=== PATIENT | male | born 1965 | race Caucasian/White ===

== ENCOUNTER 2023-09-02 04:59 | Observation (INO) ==
--- NOTE | 2023-08-12 11:33 | PAT Medication Instructions ---
Medication Instructions Date of Service August 12, 2023 Home Medications calcium carbonate 600 mg-vitamin D3 5 mcg (200 unit) capsule (Calcium 600 + D(3)) 1 cap PO QAM cyanocobalamin (vitamin B-12) 1,000 mcg/mL injection kit 1,000 mcg IM Q30D doxepin 3 mg tablet (Silenor) 3 mg PO HS ferrous sulfate 27 mg iron tablet 27 mg PO QAM folic acid 1 mg tablet 1 mg PO QAM gabapentin 600 mg tablet 600 mg PO QAM metformin 1,000 mg tablet 1,000 mg PO BID Centrum Ultra Men's 1 tab PO QAM oxycodone 30 mg tablet (Roxicodone) 30 mg PO Q6H PRN Pain rivaroxaban 10 mg tablet (Xarelto) 10 mg PO QAM timolol maleate (PF) 0.5 % eye drops in a dropperette 1 drp ophthalmic (eye) QAM latanoprost (PF) 0.005 % eye drops 1 drp ophthalmic (eye) HS empagliflozin 10 mg tablet (Jardiance) 10 mg PO QAM omega 7-ziv-akf-fish oil 1,000 mg (120 mg-180 mg) capsule (Fish Oil) 1 cap PO QAM Protonix 1 tab PO QAM metoprolol succinate 1 cap PO QAM tirzepatide 10 mg/0.5 mL subcutaneous pen injector (Mounjaro) 10 mg subcut Q7D ASK your prescriber and surgeon rivaroxaban 10 mg tablet (Xarelto) 10 mg PO QAM (From anesthesia perspective, Rivaroxaban needs to be stopped 72 hours/3 days before surgery. Please check if okay with doctor that prescribes this to you) STOP taking 3 days before surgery empagliflozin 10 mg tablet (Jardiance) 10 mg PO QAM STOP 7 days prior to surgery (if okay with prescriber) tirzepatide 10 mg/0.5 mL subcutaneous pen injector (Mounjaro) 10 mg subcut Q7D STOP taking 2 weeks before surgery (or as soon as possible if surgery is within 2 weeks) omega 8-yvn-bla-fish oil 1,000 mg (120 mg-180 mg) capsule (Fish Oil) 1 cap PO QAM DO NOT take the morning of surgery calcium carbonate 600 mg-vitamin D3 5 mcg (200 unit) capsule (Calcium 600 + D(3)) 1 cap PO QAM cyanocobalamin (vitamin B-12) 1,000 mcg/mL injection kit 1,000 mcg IM Q30D ferrous sulfate 27 mg iron tablet 27 mg PO QAM folic acid 1 mg tablet 1 mg PO QAM metformin 1,000 mg tablet 1,000 mg PO BID Centrum Ultra Men's 1 tab PO QAM Take morning of surgery With a small sip of water, OTHERWISE NOTHING TO EAT OR DRINK AFTER MIDNIGHT: gabapentin 600 mg tablet 600 mg PO QAM oxycodone 30 mg tablet (Roxicodone) 30 mg PO Q6H PRN Pain (if needed) timolol maleate (PF) 0.5 % eye drops in a dropperette 1 drp ophthalmic (eye) QAM Protonix 1 tab PO QAM metoprolol succinate 1 cap PO QAM Take evening before surgery doxepin 3 mg tablet (Silenor) 3 mg PO HS metformin 1,000 mg tablet 1,000 mg PO BID oxycodone 30 mg tablet (Roxicodone) 30 mg PO Q6H PRN Pain (if needed) latanoprost (PF) 0.005 % eye drops 1 drp ophthalmic (eye) HS Other Notes If you have any questions please call us at [phone] or [phone] or [phone] or [phone]
--- NOTE | 2023-08-17 09:30 | Anesthesiology Consultation ---
Date of Service August 17, 2023 Assessment & Plan (1) Encounter for pre-operative examination: - Check BSG AM DOS - Infectious disease screening: Per assessment on 08/17/23: No known infectious disease contacts or current infectious disease symptoms. No noted recent Covid positive test result. - Outpatient joint assessment: Pt currently scheduled for inpatient pathway. If surgeon requests review for outpatient joint pathway, patient is not recommended candidate for outpatient joint program from anesthesia standpoint. - Eliquis instructions: patient made aware that for neuraxial anesthesia, Eliquis needs to be held 72 hours prior to surgery. Patient voiced understanding/will check if okay with prescriber. - Mounjaro instructions: Patient takes on Sundays. Patient informed at PAT visit to stop 7 days prior to surgery- voiced understanding. DOS 09/02/03. Advised last dose to be 08/23/23. Patient advised to check with prescriber regarding holding/restarting Mounjaro. - Patient acceptable risk for surgery pending surgeon-ordered PCP preop evaluation (Dr. Fernandez/Graciela, appt 08/20). Chart Review Chart Review: Patient seen in Pre Admission Testing Teaching & Discussion Pre-Anesthesia Teaching/Discussion Notes: Instructed NPO after midnight before surgery,except medications with 15 cc of water. Medication instructions provided according to the PAT guidelines. History Surgery Operation Date: 09/02/23 07:00 Proposed Procedures p Left Total Knee Arthroplasty - Geovany Hoff MD Height/Weight Height: 5 ft 9 in Weight: 146.7 kg Allergies Allergy/AdvReac Type Severity Reaction Status Date / Time Uxuuqks-EAK-ZeT Reductase Allergy Mild Muscle Pain Verified 08/11/23 13:52 Inhibitor [Sgqgkpg-Uxh-Pdg Reductase Inhibitor] Medications Home Medications Medication Instructions Recorded Confirmed Last Taken calcium carbonate 600 mg-vitamin 1 cap PO QAM 12/14/18 08/11/23 06/25/23 04:30 D3 5 mcg (200 unit) capsule (Calcium 600 + D(3)) cyanocobalamin (vitamin B-12) 1,000 mcg IM Q30D 12/14/18 08/11/23 08/27/20 1,000 mcg/mL injection kit doxepin 3 mg tablet (Silenor) 3 mg PO HS 12/14/18 08/11/23 09/24/20 ferrous sulfate 27 mg iron tablet 27 mg PO QAM 12/14/18 08/11/23 06/25/23 04:30 folic acid 1 mg tablet 1 mg PO QAM 12/14/18 08/11/23 06/25/23 04:30 gabapentin 600 mg tablet 600 mg PO QAM 12/14/18 08/11/23 06/25/23 04:30 metformin 1,000 mg tablet 1,000 mg PO BID 12/14/18 08/11/23 06/25/23 04:30 multivit,Ca,min-iron 8 mg-folic 1 tab PO QAM 12/14/18 08/11/23 06/25/23 04:30 acid 200 mcg-lycopene 600 mcg tablet (Centrum Ultra Men's) oxycodone 30 mg tablet (Roxicodone) 30 mg PO Q6H PRN Pain 12/14/18 08/11/23 06/25/23 04:30 rivaroxaban 10 mg tablet (Xarelto) 10 mg PO QAM 12/14/18 08/11/23 06/25/23 04:30 timolol maleate (PF) 0.5 % eye 1 drp ophthalmic (eye) QA 12/14/18 08/11/23 06/25/23 04:30 drops in a dropperette latanoprost (PF) 0.005 % eye drops 1 drp ophthalmic (eye) 05/27/19 08/11/23 06/25/23 04:30 empagliflozin 10 mg tablet 10 mg PO QAM 12/20/19 08/11/23 06/25/23 04:30 (Jardiance) omega 8-ygb-irq-fish oil 1,000 mg 1 cap PO QAM 12/20/19 08/11/23 06/25/23 04:30 (120 mg-180 mg) capsule (Fish Oil) Protonix 1 tab PO QAM 06/18/23 08/11/23 06/25/23 04:30 metoprolol succinate 1 cap PO QAM 06/18/23 08/11/23 06/25/23 04:30 tirzepatide 10 mg/0.5 mL 10 mg subcut Q7D 06/18/23 08/11/23 06/21/23 subcutaneous pen injector (Chidi) Past Medical History Medical History Chronic back pain Deep vein thrombosis LLE DVT > PE (2000) Factor V leiden mutation Degenerative disc disease Diabetes mellitus, type 2 Factor 5 Leiden mutation, heterozygous Follows with [facility] Hematology/Dr. Ascencion Pablo Glaucoma B/L Hyperlipidemia no meds Insomnia Kidney stones Hx Morbid obesity with BMI of 45.0-49.9, adult Osteoarthritis Pulmonary embolism LLE DVT > PE (2000) Sleep apnea CPAP Spinal stenosis Exercise / Class Metabolic Activity II 4-5 Yardwork/Stairs/Walk up hill (one FS (no CP, no SOB)) Past Family History Family History Father Family history of diabetes mellitus Mother Family history of diabetes mellitus Grandfather (Maternal) Family history of diabetes mellitus Grandfather (Paternal) Family history of diabetes mellitus Family history of esophageal cancer Grandmother (Paternal) Family history of diabetes mellitus Grandmother (Maternal) Family history of diabetes mellitus Other No family history of adverse response to anesthesia Past Surgical History Surgical History History of arthroscopy of left knee meniscus repair History of arthroscopy of right knee meniscus repair History of colonoscopy with polypectomy History of cystoscopy History of left inguinal hernia repair History of lithotripsy History of major abdominal surgery Intussusception repair History of tonsillectomy History of wisdom tooth extraction Hx of vasectomy Past Anesthesia History No Hx of Anesthesia Complications and No Family Hx of Anesthesia Complications History of PONV No Hx of PONV and No Hx of Motion Sickness Social History Smoking Status: Former smoker Do You Dip or Chew Tobacco: No Smoking End Date: Quit years ago Hx Alcohol Use: Yes Alcohol type: hard liquor alcohol intake frequency: 0-2 drinks per day (1 drink/day) Hx Substance Use: No substance use type: does not use Review of Systems Patient denies chest pain, shortness of breath, dyspnea on exertion, fever, chi lls, cough, wheezing, palpitations. Physical Exam Vital Signs VITALS BP 139/97 P 85 TEMP 98.3 SP02 97%RA RESP 18 PHYSICAL Full cervical extension range of motion. Full TMJ range of motion. TMD 3.5 finger breaths Mallampati Score 3 Dentition: missing molars Lungs: clear throughout to auscultation Cardiac: regular rate and rhythm, no murmurs noted Spine: normal Carotid arteries: negative bruit Extremities: no LE edema Large pearson: advised to trim short- patient voiced understanding/agreeable Lab Results Anesthesia Preop Results Results Anesthesia Widget: WBC 5.88 K/ul (4.8-10.8) 08/17/23 Hgb 14.3 g/dl (14.0-18.0) 08/17/23 Hct 44.2 % (42.0-52.0) 08/17/23 Plt 181 K/uL (130-400) 08/17/23 Na 139 mmol/L (136-145) 08/17/23 K 4.0 mmol/L (3.5-5.1) 08/17/23 Cl 106 mmol/L (98-107) 08/17/23 CO2 23 mmol/L (21-32) 08/17/23 BUN 15 mg/dl (6-23) 08/17/23 Creat 0.87 mg/dl (0.6-1.4) 08/17/23 Glucose Level 131 mg/dl (70-99(Fasting)) H 08/17/23 PT 10.9 Seconds (9.0-12.0) 08/17/23 PTT 32 Seconds (21-31) H 08/17/23 INR 1.0 (0.9-1.1) 08/17/23 HA1c 6.3 % (4.5-5.6) H 08/17/23 Urine Color Yellow 08/17/23 Urine Appearance Clear (Clear) 08/17/23 Urine pH 5.5 (4.5-7.5) 08/17/23 Urine Specific [place] 1.028 (1.000-1.030) 08/17/23 Urine Protein Negative (Negative) 08/17/23 Urine Glucose (UA) 3+ (Negative) H 08/17/23 Urine Ketones Negative (Negative) 08/17/23 Urine Blood Negative (Negative) 08/17/23 Urine Nitrite Negative (Negative) 08/17/23 Urine Bilirubin Negative (Negative) 08/17/23 Urine Urobilinogen Negative (Negative) 08/17/23 Urine Leukocyte Esterase Negative (Negative) 08/17/23 Blood Type A Positive 08/17/23 Antibody Screen NEGATIVE 08/17/23 Testing Electrocardiogram Date: 08/17/23 NSR at 80bpm. NS IVCD. Chest X-Ray Date: 08/17/23 FINDINGS: PA and lateral chest radiographs are obtained. No prior studies are available for comparison at the time of dictation. The cardiomediastinal silhouette is unremarkable noting atherosclerotic calcification of the thoracic aorta. There is mild bibasilar scarring/atelectasis. There is airspace consolidation in the left midlung. No pleural effusion is identified. There is no pneumothorax. The skeletal structures are osteopenic. The bony thorax appears intact. Degenerative change is noted in the thoracic spine. IMPRESSION: There is airspace consolidation in the left midlung, likely representing an infectious/inflammatory pneumonitis. Clinical correlation will be required and radiographic follow-up to resolution is recommended. Chest CT Date: 08/17/23 IMPRESSION: 1. The lungs are clear. 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 2. Mild cardiomegaly noting advanced coronary artery atherosclerosis. 3. Hepatic steatosis. Other Testing *Preop testing forwarded to PCP*
[2023-09-02] MEDS: LR 60ML/HR IV SCH (06:06)
[2023-09-02] MEDS: LR 500ML BOLUS, THEN 15ML/HR IV SCH (06:06)
[2023-09-02] MEDS ORDERED: BUPIVACAINE 0.5 % 5 MG/1 ML PF 10ML VIAL ONE (06:26)
[2023-09-02] MEDS ORDERED: ROPIVACAINE 0.5% 5 MG/ML 30 ML VIAL ONE (06:26)
--- NOTE | 2023-09-02 06:26 | History & Physical Bridge Note ---
Date of Service September 02, 2023 History & Physical Bridge Note I have examined the patient, reviewed the History & Physical and in the interval since the performance of the History & Physical I have noted the following changes of clinical significance:site marked/consent verified/no additional questions. no changes noted
[2023-09-02] MEDS ORDERED: fentaNYL citrate PF 100 MCG/2 ML VIAL ONE (06:38)
[2023-09-02] MEDS ORDERED: MIDAZOLAM HCL 1 MG/ML 2ML VIAL ONE ×3 (06:38→07:26)
[2023-09-02] MEDS ORDERED: LIDOCAINE 2% 2 ML VIAL/AMP(20MG/ML) INFIL ONE (06:44)
[2023-09-02] MEDS ORDERED: PROPOFOL IV EMULSION 10 MG/ML 20 ML VIAL IV ONE ×2 (06:44→08:10)
[2023-09-02] MEDS ORDERED: KETAMINE HCL 10MG/ML SYR ONE (06:59)
[2023-09-02] MEDS ORDERED: ONDANSETRON INJ 2 MG/ML 2 ML VIAL IV PRN ×2 (07:22→10:35)
[2023-09-02] MEDS ORDERED: ATROPINE SULFATE 0.1 MG/ML 10ML SYR IV PRN (07:22)
[2023-09-02] MEDS ORDERED: fentaNYL citrate PF 100 MCG/2 ML VIAL IV PRN (07:22)
[2023-09-02] MEDS ORDERED: ePHEDrine sulfate 50 MG/ML AMP IV PRN (07:22)
[2023-09-02] MEDS: ROPIVACAINE 0.5% HCL/PF 246 MG, Ketorolac (*for OR use only*) 30 MG, EPINEPHrine 30MG/3... INFIL SCH (08:17)
[2023-09-02] MEDS: TRANEXAMIC ACID 1,000 MG x 1 **TOPICAL Use Intraop TOP SCH (08:18)
--- NOTE | 2023-09-02 08:42 | Post Operative Brief Note ---
Immediate Post Op Note v1 Date of Surgery September 02, 2023 Pre & Post Diagnosis Operation Date: 09/02/23 07:00 Pre-Op Diagnosis: Left Knee Degenerative Joint Disease Post-Op Diagnosis: Left Knee Degenerative Joint Disease I identified the patient and participated in the time-out.: Yes Procedure Operation Date: 09/02/23 07:00 Actual Procedures p Left Total Knee Arthroplasty(Left) - Geovany Hoff MD Surgeon Geovany Hoff MD Patrol Judge FERCHO/Philip/MAISHA eCrCl Estimated Blood Loss 25 Findings Consistent with Post-Op Diagnosis Flexion varus deformity severe osteoarthritis medial compartment patellofemoral joint trochlear region Fluids See anesthesia record Complications None
--- NOTE | 2023-09-02 08:45 | Operative Report ---
Post Operative Report Procedure Date: September 02, 2023 Pre & Post Diagnosis: [] Osteoarthritis with flexion varus deformity left knee pre and postop diagnosis same Time Out: I identified the patient and participated in the time-out. Procedure: [] Cemented left total knee replacement Surgeon: [] Luis Eduardo Bindery Machine Feeder Offbearer: [] FERCHO/Philip/ Estimated Blood Loss: [] 25 cc Findings: [] Severe DJD medial compartment patellofemoral joint Specimens: [] Bone pathology Description of Procedure: [] After the patient was appropriate notified site verified consent verified antibiotics confirmed to be given the left lower extremity was prepped and draped in his routine fashion. Tourniquet was inflated to 275 mmHg for exsanguination limb with a rubber arthrogram for total 61 minutes. Midline approach was utilized parapatellar arthrotomy performed synovectomy completed. Osteophytes resected. Cruciates resected. Tibia subluxated up distal femur entered with a drill bit. Menisci resected. Distal femur resected 11 mm tibia subluxated proximal tibia resected 4 mm of the appropriate line established. Extension and flexion gaps were excellent. Femur was sized to a size 7 and appropriate cutting block applied anterior posterior, chamfer cuts made flexion gap checked and was excellent. Ortho mix injected in about the knee posteriorly. The box cut was then made. The tibia was then broached and reamed to a size 7. Size 8 spacer singh gave excellent range of motion including extension 0 flexion 125 block biased thigh and calf impingement. Patella tracked well. The patella was resected leaving roughly 16 mm it was very thick patella. The 41 button was then seated and tracked well. Ortho mix was injected all about the knee the trial elements were removed the knee soaked in TXA for 2 and half minutes in Betadine for a minute the wound was then irrigated and then the cemented implants placed tibia femur patella in that order at 12 minutes tourniquet deflated minor bleeding points electrocautery at 14 minutes knee was flexed there was no cement was required trial spacer removed the knee irrigated 1 final time with Betadine the permanent liner seated knee reduced and closed at 30 to 40 degrees of flexion with #2 Vicryl 2-0 Vicryl and stainless to clips appropriate dressing applied the patient transferred recovery in satisfactory condition he tolerated the procedure well. EBL 25 cc crystalloid per anesthesia pathology pending on bone DVT prophylaxis per protocol. Summary of implants DePuy J&J ATT UNE knee replacement system size 7 femur posterior cruciate substituting size 7 tray rotating platform size 41 patella size 7 x 8 mm posterior cruciate substituting insert 2 bags of [place] G cement. Attestation: I attest to the content of the Intraoperative Record and any orders documented therein. Any exceptions are noted below.
--- NOTE | 2023-09-02 08:47 | Discharge Summary ---
Date of Service September 03, 2023 Admission HPI Per Admitting Provider Severe left knee pain Principal Diagnosis Osteoarthritis left knee Discharge Data Allergies Allergy/AdvReac Type Severity Reaction Status Date / Time Bziydrc-XOR-UdR Reductase Allergy Mild Muscle Pain Verified 09/02/23 05:30 Inhibitor [Dnvwlnt-Kur-Ntz Reductase Inhibitor] Vaccinations None Consultations None Procedures Performed Operation Date: 09/02/23 07:00 Actual Procedures p Left Total Knee Arthroplasty(Left) - Geovany Hoff MD Ordered Studies 09/02/23 05:00 US - OR guided needle placemen Routine Hospital Course (1) Status post left knee replacement: Discharge care pathway for total knee replacement Total Time Total Time Spent Total Time Spent (In Minutes): 5 minutes Discharge Plan Discharge Items Reason For Visit: Left Knee Osteoarthritis Discharge Diagnosis: Same Condition on Discharge: Good Activity: Per Instructions section Lifting: Wait until after follow-up appointment Bathing: Keep incision dry Sexual Activity: Wait until after follow-up appointment Exercise/Sports: Wait until after follow-up appointment Call non-emergency contact if: your temperature is above 101.5, your wound has increased redness, your wound has increased drainage and your wound pain has increased Follow-up/Referrals: William Fernandez [Primary Care Provider] - Addtl Attending Provider Instructions: DIET: * Resume previous diet. MEDICATIONS: * Please take your prescriptions as instructed at your pre-op appointment and/or see medication discharge instructions listed above. * If concerns develop, call your physician's office at . SPECIAL CARE INSTRUCTIONS: * Ice/Elevate as instructed. * Keep dressing clean, dry, intact. * Your surgical extremity may be discolored due to prepping agents used on the skin. A bluish-green tint is a normal variant and should not cause alarm. Call your doctor at [phone] if: * Temperature above 101 degrees * Pain not relieved by pain medicine ordered * There is increased drainage or redness from any incision * You have any unanswered questions, problems or concerns. FOLLOW UP VISIT: * If not already scheduled, please call the office at to schedule a follow-up appointment. Pending Studies at Discharge: Yes (Bone pathology) Stand-Alone Forms: My [facility] [employer] Medications and DC Order Prescriptions: No Action brimonidine-timolol [Combigan] 0.2-0.5 % drops 1 drp ophthalmic (eye) BID ciclopirox [Loprox (as olamine)] 0.77 % cream 1 applic topical BID cyclobenzaprine 10 mg tablet 10 mg PO TID PRN (Reason: Muscle Spasm) diclofenac sodium [Voltaren Arthritis Pain] 1 % gel 2 g topical QID PRN (Reason: Pain) Rx Instructions: apply to single elbow, wrist or hand; for hand includes palm/fingers/back of hand Jardiance 25 mg tablet 25 mg PO DAILY gabapentin 300 mg capsule 300 mg PO DAILY hydroxyzine HCl 10 mg tablet 10 mg PO BID PRN (Reason: Other) ibuprofen 600 mg tablet 600 mg PO Q6H PRN (Reason: Pain) metoprolol succinate 25 mg tablet extended release 24 hr 25 mg PO DAILY Centrum Silver Men [phone] mcg tablet 1 tab PO DAILY pantoprazole 40 mg tablet,delayed release (DR/EC) 40 mg PO DAILY Mounjaro 12.5 mg/0.5 mL pen injector 10 mg subcut .Q7days zaleplon 5 mg capsule 10 mg PO DAILY metformin 1,000 mg Tablet 1,000 mg PO BID folic acid 1 mg Tablet 1 mg PO QAM Calcium 600 + D(3) 600 mg calcium- 200 unit Capsule 1 cap PO QAM ferrous sulfate 27 mg iron Tablet 27 mg PO QAM Xarelto 10 mg Tablet 10 mg PO QAM cyanocobalamin (vitamin B-12) 1,000 mcg/mL Kit 1,000 mcg IM Q30D Patient Comments: beginning august oxycodone [Roxicodone] 30 mg tablet 30 mg PO BID PRN (Reason: Pain) omega 2-fau-ivj-fish oil [Fish Oil] 1,000 mg (120 mg-180 mg) Capsule 1 cap PO QAM latanoprost (PF) 0.005 % Drops 1 drp OPHTHALMIC (EYE) HS brinzolamide 1 % drops,suspension 1 drp ophthalmic (eye) BID Rx Instructions: 1 drop left eye Q12 HR Admission Data Admit Date/Time: 09/02/23 09:04 Attending Provider: Geovany Hoff Admit Provider: Geovany Hoff Primary Care Provider: William Fernandez. Other Providers: [facility],Home Healthcare; [facility],Referral [place]
--- NOTE | 2023-09-02 08:48 | Orthopedic Progress Note ---
Date of Service September 02, 2023 Orthopedic Progress Note Underwent left total knee replacement cemented. Doing well. No major issues doing anesthesia. Denies chest pain shortness of breath fever chills nausea vomiting headache. Vital signs are stable he is afebrile. Neurovascular check limited by block. Wound dressing clean dry and intact. X- rays pending. Assessment doing well status post total knee replacement continue care pathway family notified.
--- NOTE | 2023-09-02 08:57 | Operative Report ---
Post Operative Report Pre & Post Diagnosis Operation Date: 09/02/23 07:00 Pre-Op Diagnosis: Left Knee Degenerative Joint Disease Post-Op Diagnosis: Left Knee Degenerative Joint Disease I identified the patient and participated in the time-out.: Yes Procedure Operation Date: 09/02/23 07:00 Actual Procedures p Left Total Knee Arthroplasty(Left) - Geovany Hoff MD Surgeon HUONG Hoff MD [employer] FERCHO/Philip/MAISHA eCrCl Estimated Blood Loss 25 Findings Consistent with Post-Op Diagnosis see operative report Specimens see operative report Drains none Complications none Disposition Accompanied Patient To Recovery: Yes Indications This 58-year-old male presented the office with complaints of persisting left knee pain. He had tried conservative care measures without improvement. He elected to proceed with surgical intervention after being educated about potential risks and outcomes. Preoperative imaging was obtained. Description of Procedure The patient was administered a spinal anesthetic and then taken to the operating room where he was given sedation. He was prepped and draped in the usual sterile fashion. Please see Dr. Hoff's operative report for specifics of the procedure. I was present for the entire case from initial patient positioning through final wound closure. Assistance was provided in tissue retraction, hemostasis, trial implant placement, final implant placement, and final wound closure. The patient was taken to the recovery room in satisfactory condition. I attest to the content of the Intraoperative Record and any orders documented therein. Any exceptions are noted below.
--- NOTE | 2023-09-02 09:01 | Operative Report ---
Post Operative Report Pre & Post Diagnosis Operation Date: 09/02/23 07:00 Pre-Op Diagnosis: Left Knee Degenerative Joint Disease Post-Op Diagnosis: Left Knee Degenerative Joint Disease I identified the patient and participated in the time-out.: Yes Procedure Operation Date: 09/02/23 07:00 Actual Procedures p Left Total Knee Arthroplasty(Left) - Geovany Hoff MD Surgeon Geovany Hoff MD Loss Prevention Agent FERCHO/Philip/MAISHA eCrCl Estimated Blood Loss 25 Findings Consistent with Post-Op Diagnosis Same as postoperative diagnosis. Specimens The resected portions of the femur and the tibia. Description of Procedure Please see detailed operative note. I attest to the content of the Intraoperative Record and any orders documented therein. Any exceptions are noted below.
--- NOTE | 2023-09-02 09:12 | XRay Report ---
TWO VIEWS LEFT KNEE CLINICAL HISTORY: Postoperative examination. FINDINGS: AP and crosstable lateral portable views of the left knee are obtained. A left knee arthrop lasty is in near anatomic alignment. There has been undersurface remodeling of the patella. No acute fracture is seen. There are expected postoperative changes around the knee including skin clips, soft tissue edema, and subcutaneous gas. IMPRESSION: Expected postoperative changes status post left knee arthroplasty. No acute fracture is s een. ACT 112: Negative or not required by law. Electronically signed by: Chapo Jaime M.D. 09/02/2023 9:11 AM
--- NOTE | 2023-09-02 10:28 | Anesthesiology Progress Note ---
Date of Service September 02, 2023 Anesthesia Post Procedure Vital Signs Vital Signs: Temp Pulse Resp BP Pulse Ox O2 Del Method O2 Flow Rate 09/02/23 09:45 97.5 F L 63 16 131/83 94 Room Air 09/02/23 09:35 60 12 148/88 H 95 Room Air 09/02/23 09:25 63 14 144/88 H 95 Room Air 09/02/23 09:15 66 18 133/90 97 Room Air 09/02/23 09:05 64 20 114/87 98 Room Air 09/02/23 08:55 97.3 F L 61 20 108/73 96 Oxymask 6 09/02/23 05:53 98.1 F 77 20 150/95 H 96 Room Air Transfer of Care Handoff Completed per policy Notes Mental Status: alert / awake / arousable and participated in evaluation Patient Amnestic to Procedure: Yes Nausea / Vomiting: adequately controlled Pain: adequately controlled Airway Patency, RR, SpO2: stable & adequate BP & HR: stable & adequate Hydration State: stable & adequate Neuraxial Anesthesia: was administered and sensory block is resolving Anesthetic Complications: no major complications apparent and Pt Satisfied with anesthetic care
[2023-09-02] MEDS ORDERED: TIRZEPATIDE 12.5 MG/0.5 ML SQ SCH (10:35)
[2023-09-02] MEDS ORDERED: NALOXONE HCL 0.4 MG/1 ML VIAL/CARP IV PRN (10:35)
[2023-09-02] MEDS ORDERED: hydrOXYzine HCl 10 MG TAB PO PRN (10:35)
[2023-09-02] MEDS ORDERED: METOCLOPRAMIDE HCL INJ 5 MG/ML 2 ML VIAL IV PRN (10:35)
[2023-09-02] MEDS ORDERED: VANCOMYCIN CONSULT ACTIVE PRN (10:35)
[2023-09-02] MEDS ORDERED: MAGNESIUM HYDROXIDE SUSP 30 ML UDC PO PRN (10:35)
[2023-09-02] MEDS ORDERED: ALUMINUM/MAGNESIUM SUSP 30 ML UDC PO PRN (10:35)
[2023-09-02] MEDS ORDERED: CYCLOBENZAPRINE HCL 10 MG TAB PO PRN (10:35)
[2023-09-02] MEDS ORDERED: NON-FORMULARY MEDICATION (Ferrous Sulfate 27 mg iron Tablet) PO SCH (10:35)
[2023-09-02] MEDS ORDERED: PHARMACY GLYCEMIC MGMT CONSULT PRN (10:35)
[2023-09-02] MEDS ORDERED: NON-FORMULARY MEDICATION (Cyanocobalamin (Vitamin B-12) 1,000 mcg/mL Kit) IM SCH (10:35)
[2023-09-02] MEDS ORDERED: TAMSULOSIN HCL 0.4 MG CAP PO PRN (10:35)
[2023-09-02] MEDS ORDERED: bisacodyL 10 MG SUPP PR PRN (10:35)
[2023-09-02] MEDS ORDERED: diphenhydrAMINE 50 MG/ML VIAL IV PRN (10:35)
[2023-09-02] MEDS ORDERED: CARBOHYDRATES FOR HYPOGLYCEMIA PO PRN (11:15)
[2023-09-02] MEDS ORDERED: GLUCAGON FOR INJ 1 MG VIAL IM PRN (11:15)
[2023-09-02] MEDS ORDERED: GLUCOSE 40% GEL 15 GM TUBE PO PRN (11:15)
[2023-09-02] MEDS ORDERED: GLUCOSE 10 TAB/TUBE PO PRN (11:15)
[2023-09-02] MEDS ORDERED: DEXTROSE 50% 50 ML SYRINGE IV PRN (11:15)
[2023-09-02] MEDS: SODIUM CHLORIDE 0.9% 1,000 ML IV SCH (11:28)
[2023-09-02] MEDS: BRINZOLAMIDE (AZOPT) OPS 10 ML BTL OPL SCH (12:24)
[2023-09-02] MEDS: GABAPENTIN 300 MG CAP PO SCH (12:25)
[2023-09-02] MEDS: METOPROLOL SUCC 25MG EXT REL TAB PO SCH (12:25)
[2023-09-02] MEDS: PANTOprazole 40 MG TAB PO SCH (12:25)
[2023-09-02] MEDS: DOCUSATE SODIUM 100 MG CAP PO SCH (12:26)
[2023-09-02] MEDS: FOLIC ACID 1 MG TAB PO SCH (12:26)
[2023-09-02] MEDS: CALCIUM 600MG + VIT D 400 IU TAB PO SCH (12:26)
[2023-09-02] MEDS: KETOROLAC 30 MG/ML VIAL IV SCH (12:26)
[2023-09-02] MEDS: MULTIVITAMIN TAB PO SCH (12:26)
[2023-09-02] MEDS: INSULIN ASPART PER UNIT CHARGE SC SCH (12:26)
--- NOTE | 2023-09-02 12:32 | Pharmacy Report ---
Pharmacy Glycemic Short Note 2 - Date of Service September 02, 2023 - Glycemic Short BSG Results (Last 24 hours): 09/02/23 09/02/23 09/02/23 05:29 09:45 11:54 POC Glucose 123 H 102 H 173 H OUTPATIENT ANTIDIABETIC REGIMEN: * Metformin 1 g PO BIDM * Jardiance 25 mg PO daily * Mounjaro 10 mg SC weekly HbA1c: 6.3% (08/17/23) ASSESSMENT: * BE is a 58 year old male POD #0 s/p left total knee arthroplasty * No steroids in OR * Patient with well-controlled T2DM as an outpatient controlled with orals + GLP-1 agonist * Preop BSG of 123 mg/dL, postop BSG of 173 mg/dL * Will give conservative basal dose today with weight-based stress of 2 (based on adjusted body weight) Novolog PLAN FOR INPATIENT GLYCEMIC CONTROL: * Hold outpatient oral diabetes medications * Basal insulin * Lantus 10 units SQ x 1 * Bolus insulin * NovoLog per scale ACHS or Q6hrs while NPO * Goal Range: Low 110 mg/dL - High 140 mg/dL * Correction Factor: 25 mg/dL/unit * Nutritional / Prandial insulin per carb ratio of 1 unit per 8 grams CHO consumed
[2023-09-02] MEDS: LANTUS PER UNIT CHARGE SC ONE (12:34)
--- NOTE | 2023-09-02 13:00 | Orthopedic Progress Note ---
Date of Service September 02, 2023 Assessment & Plan Admission and Anticipated Discharge Date Admission Date: September 02, 2023 Subjective Postop check patient seen in his room. He is doing well denies chest pain shortness of breath fever chills nausea vomiting or headache. Vital signs are stable he is afebrile. Wound dressing clean dry and intact. Overall neurovascular check femoral sciatic nerve is normal can do a straight leg raise to can do ankle heel problems. Calves are nontender. Postop x-rays look excellent. Assessment doing well status post left total knee replacement plan is to get out of bed get a movement saline lock his IV he is eating and drinking well. Prepare for discharge tomorrow. Results & Data Vital Signs (Past 12 Hours) Vital Signs Temp Pulse Pulse Resp BP Pulse Ox O2 Del Method 09/02/23 12:05 36.7 C 73 16 146/76 H 95 Room Air 09/02/23 11:01 36.5 C 86 18 138/88 98 Room Air 09/02/23 10:35 36.5 C 64 16 129/81 94 Room Air 09/02/23 10:15 Room Air 09/02/23 10:05 36.7 C 69 16 138/88 94 Room Air 09/02/23 09:45 36.4 C L 63 16 131/83 94 Room Air 09/02/23 09:35 60 12 148/88 H 95 Room Air 09/02/23 09:25 63 14 144/88 H 95 Room Air 09/02/23 09:15 66 18 133/90 97 Room Air 09/02/23 09:05 64 20 114/87 98 Room Air 09/02/23 08:55 36.3 C L 61 20 108/73 96 Oxymask 09/02/23 05:53 36.7 C 77 20 150/95 H 96 Room Air O2 Flow Rate 09/02/23 12:05 09/02/23 11:01 09/02/23 10:35 09/02/23 10:15 09/02/23 10:05 09/02/23 09:45 09/02/23 09:35 09/02/23 09:25 09/02/23 09:15 09/02/23 09:05 09/02/23 08:55 6 09/02/23 05:53
--- OUTSIDE RECORDS SUMMARY | 2023-09-02 14:21 | External Medical Summary | Summary of Care ---
Author Name Unknown Organization [facility] Address [address] [place] [address] Phone [phone] Care Team Providers Care Hog Slaughterer Name Role Phone Dianaalissalyly William Briggs DO Primary Care Provider [phone] Reason for Visit * Reason Onset Date Comments Diabetes Management 08/27/2023 TRIAGE 08/27/2023 Non-CE DM Encounter Details Date Type Department Care Team (Late Contact Info) Description 08/27/2023 Telephone Pharmacy Call Center [phone] [place] [phone] [facility] [phone] [place] [address] Diabetes Management; TRIAGE (Non-CE DM) Allergies Active Allergy Reactions Criticality Noted Date Comments Statins Other (Please comment) 07/07/2018 Muscle and Joint problems documented as of this encounter (statuses as of 08/27/2023) Medications Medication Sig Dispensed Refills Start Date End Date Status rivaroxaban (XARELTO) 10 MG Tablet Take 1 Tablet by mouth in the morning. 0 Active Multiple Vitamins-Minerals (MULTIVITAMIN ADULT) TABS Take 1 Tab by mouth daily. 0 Active Ferrous Sulfate (IRON) 28 MG TabletIndications:every other day Take 1 Tablet by mouth. 0 Active oxyCODONE (ROXICODONE) 30 MG immediate release tablet Take 1 Tablet by mouth every 6 hours as needed for Pain. 0 Active Cyanocobalamin (B-12) 1000 MCG/ML KIT Inject as directed. 1 Kit 5 05/31/2019 Active Fish Oil 1000 MG Oral Capsule Take 1 Capsule by mouth in the morning. 0 Active metFORMIN HCl 1000 MG Oral Tablet (Glucophage) Take 1 Tablet by mouth 2 times a day with morning and evening meals. 0 04/02/2021 Active Folic Acid 1 MG Oral Tablet Take 1 Tablet by mouth in the morning. 0 Active Diclofenac Sodium 1 % External Gel (Voltaren) daily . 0 02/28/2021 Active Ciclopirox Olamine 0.77 % External Cream Apply bid and if not covered go with fungi nail 0 02/28/2021 Active Calcium Carbonate-Vitamin D 600-200 MG-UNIT Oral Tablet Take 1 Tablet by mouth in the morning. 0 Active Jardiance 25 MG Oral Tablet Take 1 Tablet by mouth in the morning. 0 10/29/2021 Active Gabapentin 300 MG Oral Capsule (Neurontin) Take 1 Capsule by mouth in the morning. 0 10/29/2021 Active Cyclobenzaprine HCl 10 MG Oral Tablet (Flexeril) Take 1 Tablet by mouth 3 times a day as needed. 0 09/09/2021 Active Brimonidine Tartrate-Timolol 0.2-0.5 % Ophthalmic Solution Instill 1 Drop into the left eye every morning. 0 Active Latanoprost 0.005 % Ophthalmic Solution 1 Drop at bedtime. 0 Active Timolol Hemihydrate 0.5 % Ophthalmic Solution (Betimol) Instill 1 Drop into both eyes in the morning and 1 Drop before bedtime. 0 Active Pantoprazole Sodium 40 MG Oral Tablet Delayed Release (Protonix) Take 1 Tablet by mouth in the morning. 0 Active CPAP every night at bedtime. 0 Active Metoprolol Tartrate 25 MG Oral Tablet (Lopressor) Take 1 Tablet by mouth in the morning. 0 Active Mounjaro 10 MG/0.5ML Subcutaneous Solution Pen-injector (Tirzepatide)Indication s:Type 2 diabetes mellitus without complication, without long-term current use of insulin (HCC) Inject 10 mg under the skin once a week. 6 mL 1 08/04/2023 Active documented as of this encounter (statuses as of 08/27/2023) Active Problems Problem Noted Date Diagnosed Date Body mass index (BMI) of 45.0 to 49.9 in adult 0 02/10/2022 Overview: Per Obesity protocol Morbid obesity due to excess calories 12/30/2021 Pre-operative exam 12/30/2021 Statin intolerance 06/09/2019 Calculus of both ureters 03/26/2017 Heterozygous factor V Leiden mutation 02/05/2016 History of DVT (deep vein thrombosis) 02/05/2016 History of pulmonary embolism 02/05/2016 Lumbago 11/09/2012 Type 2 diabetes mellitus wit hout complication, without long-term current use of insulin 06/20/2008 Hypercholesteremia 06/26/2005 Sleep apnea in adult 08/01/2002 documented as of this encounter (statuses as of 08/27/2023) Resolved Problems Problem Noted Date Diagnosed Date Resolved Date Acute venous embolism and th rombosis of other specified veins(453.89) 05/07/2001 09/04/2021 documented as of this encounter (statuses as of 08/27/2023) Social History Tobacco Use Types Packs/Day Years Used Date Smoking Tobacco: Former Cigarettes Q uit: 07/06/1998 Smokeless Tobacco: Never Alcohol Use Standard Drinks/Week Comments Yes 1 (1 standard drink = 0.6 oz pure alcohol) Once a week or every other week Hunger Vital Sign Answer Date Recorded Within the past 12 months, y ou worried that your food would run out before you got the money to buy more. Never true 10/02/19 23 Within the past 12 months, t he food you bought just didn't last and you didn't have money to get more. Never true 10/01/2022 Sex and Gender Information Value Date Recorded Sex Assigned at Not on file Gender Identity Male 12/12/2022 2:55 PM EDT Sexual Orientation Not on file Job Start Date Occupation Industry Not on file Not on file Not on file documented as of this encounter Miscellaneous Notes * Telephone Encounter - [place] [facility]quist PHARM Tech - 08/27/2023 11:05 AM EST [facility] Plan Non-Clinical [place] [facility]- Obstetrics Tech Workup After connecting to the patient via telephone, the patient was identified by name and date of . The patient agreed to participate. SUBJECTIVE Diabetes Care Team DM managed by: [facility] PCP, Dr. Fernandez Blood Glucose Review Current method of checking BG: Fingerstick (tests 0 times per day) Adherent to testing? no frequency: only when he thinks its needed Social Determinants of Health Do you need food for this week?: N (10/01/2022 12:00 PM) Do you currently live in a assisted or have no steady place to sleep at night?: N (10/01/2022 12:00 PM) Do you think you are at risk of becoming homeless?: N (10/01/2022 12:00 PM) Do you have trouble getting a ride to medical visits or work?: Never True (10/01/2022 12:00 PM) Do you have any trouble paying for your medications, or do you think you might in the future?: N (10/01/2022 12:00 PM) How often do you feel lonely or isolated from those around you?: Never (10/01/2022 12:00 PM) Do you feel unsafe or have concerns for your safety?: N (10/01/2022 12:00 PM) Do you feel overwhelmed with taking care of a child, family member or friend?: N (10/01/2022 12:00 PM) Have you been unable to get clothing when it was really needed?: N (10/01/2022 12:00 PM) Do you have trouble paying your heating, water, or electric bill?: N (10/01/2022 12:00 PM) Are you unemployed or without regular income?: N (10/01/2022 12:00 PM) SDOH screening completed within the last year: yes ; housing, food or transportation insecurity identified no Lifestyle Current smoker? no Alcohol consumption? At night - mixed drink OBJECTIVE Diagnosis: T2DM Medications Current Diabetes Therapy: Mounjaro, jardiance, metformin Past Diabetes Therapies Tried: NA Do you have trouble getting a ride to appointments or to get your medications? no Do you use a pill box for your medications? no Filling via [facility] Mail Order Pharmacy? No; [facility] but possibly interested in [facility] Filling as 90 day supplies: Yes BRUNA Silver Tech 08/27/2023, 11:05 AM * Telephone Encounter - [facility] - 08/27/2023 11:00 AM EST [facility] Non-Clinical [place] [facility] THIS NOTE SERVES FOR TRIAGING PURPOSES ONLY AND IS NOT A PATIENT CONTACT. PATIENT MAY BE CONTACTED FOLLOWING MY ASSESSMENT. Patient was identified to be a candidate for the Non- telephonic program based on the following criteria: Pharmacy AND/OR Medical High Cost / A1c < 9.0 / PDC >=80% Patient managed by [facility] provider? No; Pertinent Diabetes Info in Care Everywhere Yes (Sees [facility] Nutrition) Last A1C: 5.4 (Result Date: 10/05/2022) Diabetes Diagnosis: Type 2 After chart review the following opportunities were identified: Mail Order Invite ( Only gets Chidi from [facility], can try to transfer all scripts to [facility] ) Action to be taken by bio medical technician: Please contact and warm transfer to [facility] if patient is agreeable Needs Language Line: No [facility] Clinical Pharmacist 08/27/2023, 11:00 AM documented in this encounter Plan of Treatment Upcoming Encounters Date Type Department Care Team (Late st Contact Info) Description 02/05/2024 12:00 PM EDT Office Visit Nutrition & Weight Management, [facility] [address] [place] [address] Gracia Nicole PA-C [address] [place] [address] Health Maintenance Due Date Last Done Comments Depression Screening 1975 HIV Screening 1978 Diabetic Foot Exam 1981 Hepatitis C Screening 1981 DTaP,Tdap,and Td Vaccines (1 - Tdap) 1982 Cologuard 2008 Fecal Occult Blood Test 2008 Sigmoidoscopy 2008 Zoster Vaccines (1 of 2) 2013 Pneumococcal Vaccine: Pediatrics (0 to 5 Years) and At-Risk Patients (6 to 64 Years) (2 of 2 - PCV) 06/06/2017 06/06/2016 HbA1c 02/25/2023 08/28/2022, 08/0 07/2021, 11/28/2021, Additional history exists COVID-19 Vaccine ( - season) 2023 Influenza Vaccine (FLU shot) (#1) 2023 03/29/2020, 06/09/2019, 07/20/2018, Additional history exists Albumin/Creatinine Ratio 05/08/2023 05/08/2022 GFR 10/07/2023 10/06/2022, 04/0 08/2022, 08/28/2022, Additional history exists Diabetic Eye Exam 01/28/2024 01/27/2023, 01/20/2023 Lipid Panel 08/28/2027 08/28/2022, 08/0 07/2021, 12/16/2021, Additional history exists Colonoscopy 09/27/2030 09/27/2020, 12/05, 06/08/2019, Additional history exists Colorectal Cancer Screening 09/27/2030 GARDASIL-HPV IMMUNIZATION SERIES Aged Out No longer eligible based on patient's age to complete this topic Hepatitis B Aged Out No longer eligi ble based on patient's age to complete this topic MENINGOCOCCAL (MENACTRA/MENVEO) Aged Out No longer eligible based on patient's age to complete this topic documented as of this encounter Medical Devices Not on filedocumented as of this encounter Advance Directives Latest Code Status on File Code Status Date Activated Date Inactivated Comments Full Code 11/03/2022 2:27 PM 11/03/2022 9:37 PM This or soledad reflects the patients wishes and were consensually agreed upon. Question Answer Comments Discussion of Advance Directives occurred with: Not Discussed due to patient's condition Code Status History Code Status Date Activated Date Inactivated Comments Full Code 11/03/2022 11:41 AM 11/03/2022 2:27 PM This o rder reflects the patients wishes and were consensually agreed upon. Question Answer Comments Discussion of Advance Directives occurred with: Not Discussed due to patient's condition Care Teams Hog Slaughterer Relationship Specialty Start Date End Date William Fernandez DO [address] [place] [address] [place] [address] PCP - General Family Medicine 05/15/22 documented as of this encounter
--- OUTSIDE RECORDS SUMMARY | 2023-09-02 14:21 | External Medical Summary | Continuity of Care Document ---
Author Name Unknown Organization [facility] [address] [id number] Address [address] [place], [place] [id number] Care Team Providers Care Alodize Machine Helper Name Role Phone William Fernandez Primary Care Physician [phone] [id number] Date(s): 08/28/23 - 08/28/23 [facility] [address] [id number] [facility] Medicine [address] [place] [id number] Encounter Diagnosis Lumbar facet arthropathy(Discharge Diagnosis) - 08/28/23 Discharge Disposition: Home or Self Care Attending Physician: MD Cisse Gregory G Allergies, Adverse Reactions, Alerts Substance Reaction Severity Status Statins (HMG-CoA reductase inhibitors) muscle weakness Active Assessment and Plan Extracted from: Title:Follow Up Visit Author:MD Cisse Gregory G Date:08/28/23 1.Lumbar facet arthropathy Patient has had a nice response 50% improvement to bilateral L5-S1 denervationhopefully this will not impact his ability to rehab for his knee replacementand will follow-up in the office on a as needed as-needed basis for any significant flares of the back pain in the future. Medications brimonidine-timolol 0.2%-0.5% ophthalmic solution Start: 08/17/23 8:30:00 EST Start Date: 08/17/23 Status: Ordered calcium (as carbonate)-vitamin D3 600 mg-12.5 mcg (500 intl units) oral capsule Start: 08/17/23 8:31:00 EST Start Date: 08/17/23 Status: Ordered Centrum Men's oral tablet Start: 08/17/23 8:31:00 EST Start Date: 08/17/23 Status: Ordered ciclopirox 0.77% topical cream Start: 08/17/23 8:32:00 EST, 1 appl, topical, bid Start Date: 08/17/23 Status: Ordered colestipol 1 g oral tablet Start: 08/17/23 8:32:00 EST, 1 tab, PO, bid Start Date: 08/17/23 Status: Ordered diclofenac sodium 1% topical cream Start: 08/17/23 8:33:00 EST Start Date: 08/17/23 Status: Ordered ferrous sulfate Start: 08/17/23 8:33:00 EST, 27mg Start Date: 08/17/23 Status: Ordered Fish Oil 500 mg oral capsule Start: 04/27/23 9:48:00 EDT Start Date: 04/27/23 Status: Ordered Flexeril Start: 08/17/23 8:32:00 EST, 10 mg = Start Date: 08/17/23 Status: Ordered folic acid 1 mg oral tablet Start: 08/17/23 8:34:00 EST, 1 tab, PO, Daily Start Date: 08/17/23 Status: Ordered gabapentin 300 mg oral capsule Start: 04/27/23 9:47:00 EDT, 2 cap, PO, tid, 1000 mg daily Start Date: 04/27/23 Status: Ordered hydrOXYzine Start: 08/17/23 8:34:00 EST, 10 mg = Start Date: 08/17/23 Status: Ordered ibuprofen Start: 08/17/23 8:35:00 EST, 600 mg = Start Date: 08/17/23 Status: Ordered Jardiance 25 mg oral tablet Start: 04/27/23 9:47:00 EDT, 1 tab, PO, Daily, Disp# 30 tab Start Date: 04/27/23 Status: Ordered latanoprost 0.005% ophthalmic solution Start: 04/27/23 9:48:00 EDT, 1 drop, both eyes, qhs Start Date: 04/27/23 Status: Ordered metFORMIN 1000 mg oral tablet Start: 04/27/23 9:46:00 EDT, 1 tab, PO, bid Start Date: 04/27/23 Status: Ordered Metoprolol Succinate ER 25 mg oral tablet, extended release Start: 04/27/23 9:48:00 EDT, 1 tab, PO, Daily Start Date: 04/27/23 Status: Ordered Mounjaro Start: 06/03/23 9:14:00 EST Start Date: 06/03/23 Status: Ordered oxyCODONE 30 mg oral tablet Take 1 tablet by mouth 2 times a day For ongoing therapy Start Date: 04/27/23 Status: Ordered Ozempic Start: 08/17/23 8:36:00 EST Start Date: 08/17/23 Status: Ordered pantoprazole 40 mg oral delayed release tablet Take ONE tablet by MOUTH every morning Start Date: 04/27/23 Status: Ordered ramelteon 8 mg oral tablet Start: 08/17/23 8:37:00 EST Start Date: 08/17/23 Status: Ordered Sonata 5 mg oral capsule Start: 08/17/23 8:37:00 EST, 1 cap, PO, qhs, PRN: as needed for sleep Start Date: 08/17/23 Status: Ordered Vitamin B12 Start: 08/17/23 8:32:00 EST, 1,000 mcg = Start Date: 08/17/23 Status: Ordered Xarelto 10 mg oral tablet Start: 04/27/23 9:47:00 EDT Start Date: 04/27/23 Status: Ordered Mental Status 08/28/23 Barriers to Learning one year None evide nt Mandatory Health Literacy Documentation Yes Health Literacy Communication Barriers N ever Primary Language [place] Problem List Condition Confirmation Course Effective Dates Status H ealth Status Informant Lumbar facet arthropathy Confirmed Active Right lumbar radiculopathy Confirmed Active Spondylolisthesis, lumbar region Confirmed Active Knee joint pain Confirmed Active Bilateral chronic knee pain Confirmed Active Diagnosis Diagnosis Type Effective Dates Health Status Clinical Service Informant Lumbar facet arthropathy Discharge Diagnosis 08/28/23 Social History Social History Type Response Smoking Status Never smoked cigaret patrick Sex Male Ortho Outpt Note * MD Betito, Tim Shepherd: PERFORM Event Display: Ortho Outpt Note Authored Date: [id number] Chief Complaint Follow up bilateral RDF injection pain Primary Care Provider DO Fernandez Andy J Subjective Patient is a 58-year-old male who underwent bilateral L5-S1 denervation's and reports that he is doing better. He notes at least 50% improvement in painno longer has pain radiating down the rightleg. He notes that he will still get some stiffness in his lower back if he flexes a lotbut he is doing better overall. He is able to stand longer. Quantifies pain today as a 2 out of 10 currently 2 out of 10 at the least 6 out of 10 at the most. He is scheduled for a knee replacementofhis left knee next week and this is been a focus foras of late. Objective Physical Exam Pleasant male seated comfortablyhis injection site was visualized was clean dry and intact nontenderhe had minimal discomfort with extension extension rotation increased slightlyhe had no sciatic notch sensitivity. He had normal lower extremity strength. He had in the hands subjective sensation in the right S1 dermatomal distributionand in the left L4-5 dermatomal distribution Assessment/Plan 1.Lumbar facet arthropathy Patient has had a nice response 50% improvement to bilateral L5-S1 denervationhopefully this willnot impact his ability to rehab for his knee replacementand will follow-up in the office on a as needed as-needed basis for any significant flares of the back pain in the future. Electronic Signature on File CC: William Fernandez DO [address] [place] [phone] * Electronically Reviewed/Signed by: Tim Cisse MD Author Signature Dt/Tm:08/28/2023 09:21 AM [facility] Patient Care team information Care Team Personnel Name: DO Fernandez Andy J Position: Referring Member Role: Primary Care Provider Address: Address: [address] [place] [phone] [place]
--- OUTSIDE RECORDS SUMMARY | 2023-09-02 14:21 | External Medical Summary | Continuity of Care Document ---
Author Name Unknown Organization [facility] [address] [id number] Address [address] [place], [place] [id number] Care Team Providers Care Operations Assistant Name Role Phone William Fernandez Primary Care Physician [phone] [id number] Date(s): 08/17/23 - 08/17/23 [facility] [address] [id number] [address] Encounter Diagnosis Left knee DJD(Discharge Diagnosis) - 08/17/23 Discharge Disposition: Home or Self Care Attending Physician: ADELITA Palacios, David Olivo Referring Physician: MD Luis Eduardo, Geovany Briggs Allergies, Adverse Reactions, Alerts Substance Reaction Severity Status Statins (HMG-CoA reductase inhibitors) muscle weakness Active Medications brimonidine-timolol 0.2%-0.5% ophthalmic solution Start: 08/17/23 [...] Start Date: 04/27/23 Status: Ordered Mental Status 08/17/23 Barriers to Learning one year None evide nt Mandatory Health Literacy Documentation Yes Health Literacy Communication Barriers N ever Primary Language Estonian Problem List Condition Confirmation Course Effective Dates Status H ealth Status Informant Right lumbar radiculopathy Confirmed Active Spondylolisthesis, lumbar region Confirmed Active Knee joint pain Confirmed Active Bilateral chronic knee pain Confirmed Active Diagnosis Diagnosis Type Effective Dates Health Status Cl inical Service Informant Left knee DJD Discharge Diagnosis 08/17/23 Vital Signs Most recent to oldest [Reference Range]: 1 Height 176.5 cm (08/17/23 8:39 AM) Patient Weight 145.8 kg (08/17/23 8:39 AM) Body Mass Index 46.8 kg/m2 (08/17/23 8:39 AM) Temperature [36.5-37.9 DegC] 36.0 DegC *LOW* (08/17/23 8:39 AM) Respiratory Rate 20 br/min (08/17/23 8:39 AM) Blood Pressure 134/90mmHg (08/17/23 8:39 AM) Cuff Pulse Pressure 44 mmHg (08/17/23 8:39 AM) Social History Social History Type Response Smoking Status Never smoked cigaret patrick Sex Male Pre-OP H & P * ADELITA Palacios Cory D: PERFORM, MODIFY, MODIFY, MODIFY Event Display: Pre-OP H & P Authored Date: [id number] PRE-OPERATIVE HISTORY AND PHYSICAL Name: BRITTANY SELLERS Patient Number: [id number] : 1965 Date of Service: 08/17/2023 PRE-OP Diagnosis: Left knee DJD Planned Procedure: Left total knee arthroplasty Chief Complaint: Left knee pain History of Present Illness (including history relevant to procedure): This 58-year-old male presents today for his preoperative history and physical. He is scheduled to undergo a left knee total kneearthroplasty on 09/02/2023. The patient has had bilateral knee pain for several years. It has becomeworse with time. It is now steady and worse with any activity. It is affecting his ADLs. He has been ambulatory with a limp. He has tried physical therapy as well as cortisone injections and Visco injections without improvement. He elects to proceed with surgical intervention in hopes of improving his pain and function. Preoperative imaging has been obtained. He denies any numbness or tingling. He does have a history of peripheral edema after previous DVT and PE in 2000. He has a known history of factor V Leiden deficiency and is on chronic Xarelto. Review Of Systems: A total of 10 systems were reviewed and are significant for below stated conditions. Family history: Factor V deficiency, coronary artery disease, cancer, diabetes Social history: Patient is retired. No tobacco use, occasional EtOH use. Quit smoking in 2000. Past Medical History: Problems: Right lumbar radiculopathy Spondylolisthesis, lumbar region Bilateral chronic knee pain Factor V deficiency Sleep apnea Use of CPAP History of PE 2000 Hypertension Elevated cholesterol Morbid obesity Diabetes Rheumatoid arthritis Kidney stones Procedure History Procedure Procedure Date Comments Cataract surgery x 2 carpal tunnel release Knee arthroscopy with partial meniscectomy x 2 Herniorrhaphy x 3 Ureteroscopy for stone retrieval x 3 Allergies and Sensitivities: Statins (HMG-CoA reductase inhibitors)(muscle weakness) Current Home Meds: (Last Updated 08/17 08:37) brimonidine-timolol ophthalmic (brimonidine-timolol 0.2%-0.5% ophthalmic solution) calcium-vitamin D (calcium (as carbonate)-vitamin D3 600 mg-12.5 mcg (500 intl units) oral capsule) ciclopirox topical (ciclopirox 0.77% topical cream) 1 appl topical bid colestipol (colestipol 1 g oral tablet) 1 g PO bid cyanocobalamin (Vitamin B12) 1,000 mcg cyclobenzaprine (Flexeril) 10 mg diclofenac topical (diclofenac sodium 1% topical cream) empagliflozin (Jardiance 25 mg oral tablet) 25 mg PO Daily ferrous sulfate 27mg folic acid (folic acid 1 mg oral tablet) 1 mg PO Daily gabapentin (gabapentin 300 mg oral capsule) 600 mg PO tid 1000 mg daily hydrOXYzine 10 mg ibuprofen 600 mg latanoprost ophthalmic (latanoprost 0.005% ophthalmic solution) 1 drop both eyes qhs Store intact bottles under refrigeration. Once opened, the container may be stored at room temperature for 6 weeks. Lei Bernard 04/27 09:49 metFORMIN (metFORMIN 1000 mg oral tablet) 1,000 mg PO bid metoprolol (Metoprolol Succinate ER 25 mg oral tablet, extended release) 25 mg PO Daily multivitamin with minerals (Centrum Men's oral tablet) omega-3 polyunsaturated fatty acids (Fish Oil 500 mg oral capsule) oxyCODONE (oxyCODONE 30 mg oral tablet) Take 1 tablet by mouth 2 times a day For ongoing therapy pantoprazole (pantoprazole 40 mg oral delayed release tablet) Take ONE tablet by MOUTH every morning ramelteon (ramelteon 8 mg oral tablet) rivaroxaban (Xarelto 10 mg oral tablet) semaglutide (Ozempic) tirzepatide (Mounjaro) zaleplon (Sonata 5 mg oral capsule) 5 mg PO qhs PRN: as needed for sleep Vitals: Last Updated 08/17/23 08:39 Weights: Last Updated 08/17/23 08:39 Date Temp Pulse BP RR SpO2 FIO2 Date Wt(kg) Wt(lb) 0212 08:39 36.0 134/90 20 96 0212 08:39 145.8 321 0212 08:39 145.8 321 24 Hr Tmax: 36.0 at 0212 08:39 Initial Wt: 08/17 145.8 kg 321 lb Physical Exam: (relevant to the procedure, including heart and lung evaluation) General: Well-developed, well-nourished, middle-aged male, in no acute distress. Sitting in a chair. Alert and oriented. Obese. HEENT: Normocephalic, atraumatic. Eyes PERRLA, EOMI. Nares patent bilaterally without nasal drainage. Oral mucosa moist. Neck: No JVD Cardiac: RRR. No MGR. Peripheral pulses are 2+. Lungs: Clear to auscultation bilaterally. No crackles, rhonchi, or wheezing. Good air movement. Abdomen: Significantly obese. Bowel sounds present x 4. Soft nontender. No organomegaly. No masses. Extremities: Left knee evaluation reveals a lack of around 2 degrees of terminal extension. Flexionto only 95 degrees. Strength is 5/5 with good quad tone. He has focal discomfort with palpation over the medial and lateral joint lines. Stable collateral ligaments. No palpable defect in the patellar tendon or quadriceps tendon. He is able to perform a straight leg raise. Ambulatory today with a significant limp. Neuro: Gross sensation is intact across both lower extremities by soft touch. Skin: Warm and dry with good turgor. Mild intra-articular effusion in the left knee. Ecchymosis or erythema. Studies of radiology results (relevant to the procedure): Radiographic imaging previously obtained of the left knee is significant for end-stage DJD. He is [id number]. Periarticular osteophytes andsubchondral sclerosis are also present. ASSESSMENT: Left knee end-stage DJD Plan: Approximate 30 minutes was spent with the patient reviewing operative procedure, postoperative recovery, physical therapy requirements, and medication use. Postoperative prescriptions for Percocet, Eliquis, and Zofran will be sent upon discharge from the hospital. Anticipate discharge to homewith home health services. PDMP was checked and there are no concerning findings. He is currently asymptomatic of any COVID-19 symptoms. He has no known recent ill contacts. The patient already has awalker and cane. He will attend PAT today for his preoperative EKG, chest x-ray, and lab work. Follow-up with his PCP has been scheduled for early next week. Postop appointment with me has been made for September 16 for staple removal. This dictation has been completed using [employer] text voice recognition software. Grammatical errors, omissions, insertions, and misspellings may be present due to the limitations of the software. Electronic Signature on File Electronically Reviewed/Signed by: David Palacios PA-C Author Signature Dt/Tm:08/19/2023 03:13 PM Division of Sports Medicine Electronically Reviewed/Signed by: Geovany Hoff MD Cosigner Signature Dt/Tm: 08/19/2023 06:05 PM Fine Arts Instructor for Clinical Affairs, [facility] Steven Professor in Orthopaedics Vp Clinical Research, [facility] CDS Patient Care team information Care Team Personnel Name: DO Fernandez Andy J Position: Referring Member Role: Primary Care Provider Address: Address: [address] [place] [id number]
--- OUTSIDE RECORDS SUMMARY | 2023-09-02 14:21 | External Medical Summary | Summary of Care ---
Author Name Unknown Organization [facility] Address [address] [place] [address] Phone [phone] Care Team Providers Care Senior Support Analyst Name Role Phone Dianaalissalyly William Briggs DO Primary Care Provider [phone] Reason for Visit * Reason Onset Date Comments Diabetes Management 08/27/2023 TRIAGE 08/27/2023 Non-CE DM Encounter Details Date Type Department Care Team (Late Contact Info) Description 08/27/2023 Telephone Pharmacy Call Center [phone] [place] [phone] [facility] [phone] [place] [phone] Diabetes Management; TRIAGE (Non-CE DM) Allergies Active [...] PHARM Tech - 08/27/2023 11:05 AM EST [facility] Plan Non-Clinical [place] [facility]- Jig Box Operator Workup After connecting to the patient via telephone, the patient was identified by name and date of . The patient agreed to participate. SUBJECTIVE Diabetes Care Team DM managed by: [facility] PCP, Dr. Fernandez Blood Glucose Review Current method of checking BG: Fingerstick (tests 0 times per day) Adherent to testing? no frequency: only when he thinks its needed Social Determinants of Health Do you need food for this week?: N (10/01/2022 12:00 PM) Do you currently live in a alf or have no steady place to sleep [...] box for your medications? no Filling via [facility] Mail Order Pharmacy? No; [facility] but possibly interested in [facility] Filling as 90 day supplies: Yes BRUNA Silver Tech 08/27/2023, 11:05 AM * Telephone Encounter - [facility] - 08/27/2023 11:00 AM EST [facility] Non-Clinical [place] [facility] THIS NOTE SERVES FOR TRIAGING PURPOSES ONLY AND IS NOT A PATIENT CONTACT. PATIENT MAY BE CONTACTED FOLLOWING MY ASSESSMENT. Patient was identified to be a candidate for the Non- telephonic program based on the following criteria: Pharmacy AND/OR Medical High Cost / A1c < 9.0 / PDC >=80% Patient managed by [facility] provider? No; Pertinent Diabetes Info in Care Everywhere Yes (Sees [employer] [facility]) Last A1C: 5.4 (Result Date: 10/05/2022) Diabetes Diagnosis: Type 2 After chart review the following opportunities were identified: Mail Order [facility] ( Only gets Chidi from [place], can try to transfer all scripts to [place] ) Action to be taken by automotive technician: Please contact and warm transfer to [facility] if patient is agreeable Needs Language Line: No [facility] Clinical Pharmacist 08/27/2023, 11:00 AM documented in this encounter Plan of Treatment Upcoming Encounters Date Type Department Care Team (Late st Contact Info) Description 02/05/2024 12:00 PM EDT Office Visit Nutrition & Weight Management, [facility] [address] [place] [address] Gracia Nicole PA-C [address] [place] [phone] Health Maintenance Due Date Last Done Comments [...] Discussed due to patient's condition Care Teams Senior Support Analyst Relationship Specialty Start Date End Date William Fernandez DO [address] [place] [address] [place] [id number] PCP - General Family Medicine 05/15/22 documented as of this encounter
[2023-09-02] MEDS: ACETAMINOPHEN 500 MG TAB PO SCH (14:37)
[2023-09-02] MEDS: ceFAZolin 2000MG 2,000 MG/15 ML SYR IV SCH (15:37)
[2023-09-02] MEDS: FERROUS GLUCONATE 324 MG TAB PO SCH (17:19)
[2023-09-02] MEDS: ASCORBIC ACID 500 MG TAB PO SCH (17:19)
[2023-09-02] MEDS: VANCOMYCIN HCL 2,000 MG in SODIUM CHLORIDE 0.9% 500 ML IV SCH (18:44)
[2023-09-02] MEDS: SENNA 8.6 MG TAB PO SCH (19:50)
[2023-09-02] MEDS: LATANOPROST 0.005% OP SOLN 2.5 ML BTL OP SCH (21:05)
[2023-09-02] MEDS: oxyCODONE HCL IR 5 MG TAB (IMMEDIATE RELEASE) PO PRN (23:48)
[2023-09-03] MEDS: HYDROmorphone INJ 0.5 MG/0.5 ML SYR IV PRN (05:41)
--- NOTE | 2023-09-03 06:36 | Orthopedic Progress Note ---
Date of Service September 03, 2023 Assessment & Plan Admission and Anticipated Discharge Date Admission Date: September 02, 2023 Orthopedic Progress Note Postop day #1 status post left total knee replacement. Patient was getting up to go to the bathroom. He is bearing full weight with a walker and knee immobilizer in place on his left leg. Was complaining that he had significant pain last evening around the incision. Told that was all likely based on the block wearing off. Vital signs are stable he is afebrile. He denies nausea vomiting chest pain shortness of breath fever or chills. Neurovascular check is intact can dorsi and plantarflex his foot and toes can do a heel lift. Wound dressing clean dry and intact. Assessment doing well status post total knee replacement. Will discharge to home today after PT OT and dressing change. Begin DVT PE prophylaxis 24 hours postop. Follow-up in 2 weeks for staple removal.
[2023-09-03 07:08] LABS: Hematocrit (blood only) 37.7 % (42.0-52.0); Hemoglobin 12.6 g/dl (14.0-18.0); Mean Corpuscular Hemoglobin 30.1 pg (25.0-34.0); Mean Corpuscular Hgb Conc 33.4 g/dL (32.0-36.0); Mean Platelet Volume 9.2 fL (9.4-12.4); Platelet Count 136 K/uL (130-400); RDW Coefficient of Variation 13.3 % (11.5-14.5); RDW Standard Deviation 43.7 fL (36.4-46.3); Red Blood Count 4.19 M/uL (4.70-6.10); White Blood Count 6.59 K/ul (4.8-10.8)
[2023-09-03 07:34] LABS: BUN Creatinine Ratio 16.7 (10-20); Calcium 8.7 mg/dl (8.6-10.3); Est GFR (African American) 113.7 ml/min; Est GFR (Non-African American) 98.1 ml/min
[2023-09-03] MEDS: RIVAROXABAN 10 MG TABLET PO SCH (08:05)
[2023-09-03] MEDS: LANTUS PER UNIT CHARGE SC SCH (08:13)
--- NOTE | 2023-09-03 18:09 | Orthopedic Progress Note ---
Date of Service September 03, 2023 Assessment & Plan (1) Status post left knee replacement: Plan: The patient was educated regarding today's findings. Conservative care measures were discussed. His dressing was changed by me. New pressure dressing was applied. Troy stocking was also applied. Importance of wearing this was discussed with him at length. Leave the dressings in place until Thursday. They can be changed at that time if needed for soiling. He is participating with home health. Follow-up in the office in 2 weeks as scheduled for staple removal. Transition to outpatient PT at that time. Written discharge instructions were provided. Prescription for Percocet was sent to his pharmacy. His Xarelto was restarted this morning. Continue ambulating with his walker and knee immobilizer today and tomorrow. It can be discontinued entirely on Thursday. Admission and Anticipated Discharge Date Admission Date: September 02, 2023 Subjective This 58-year-old male is seen today in his room. He is 1 day status post left total knee arthroplasty. He states he is having some pain. He has just completed walking in the hallway. No numbness or tingling. He states he can handle a lot of pain, but is glad he has oxycodone to use for pain control. He denies any chest pain, shortness of breath, nausea, vomiting, or abdominal pain. He feels ready for discharge to home. No additional complaints. Review of Systems Review of Systems: Unchanged from yesterday. Physical Exam Physical Exam: General: Well-developed, well-nourished, middle-aged male, in no acute distress. Laying in bed. Alert and oriented. Skin: Warm and dry with good turgor. No rashes. Postsurgical dressing is in place on the left knee. There is some bleeding strikethrough on the Scar wrap's distally. Upon removal, he has no active bleeding. Surgical incision is closed. Jessica are in place. Wound edges are well-approximated. Expected postoperative edema and effusion. Mild ecchymosis is developing. Musculoskeletal: The patient has intact motor function of his hip, knee, and ankle. He is able to perform straight leg raise. He has nearly full terminal extension. Flexes to around 40 degrees without difficulty. Neurologic: Gross sensation is intact across the left leg by soft touch. Peripheral pulses are 2+. Results & Data Vital Signs (Past 12 Hours) Vital Signs Temp Pulse Resp BP Pulse Ox O2 Del Method 09/03/23 07:27 Room Air 09/03/23 07:08 36.8 C 84 18 146/84 H 95 Room Air Laboratory Results CBC obtained this morning shows a white count of 6.59. H&H of 12.6 and 37.7. Platelets are 136,000. Sodium 136, potassium 4.0, chloride 105, anion gap of 8. BUN of 13 with creatinine 0.78. Glucose this morning is 157.
== END 2023-09-03 10:57 | disposition home health service (06) ==
LOC: ASU 04:59 → 3E 04:59

== ENCOUNTER 2024-06-26 11:42 | Inpatient (IN) ==
--- OUTSIDE RECORDS SUMMARY | 2024-06-26 11:48 | External Medical Summary | Summary of Care ---
Author Name Unknown Organization [facility] Address [address] [place] [address] Phone [phone] Care Team Providers Care [employer] Sales Beauty Advisor Name Role Phone Marylyly William Briggs DO Primary Care Provider [phone] Reason for Visit * Reason Comments Weight Management The pt stated he is here to follow up about his Mounjaro Encounter Details Date Type Department Care Team (Late st Contact Info) Description 02/05/2024 12:00 PM EDT Office Visit Nutrition & Weight Management, [facility] [address] [place] [id number] Gracia Nicole PA-C [address] [place] [id number] Type 2 diabetes mellitus without complication, without long-term current use of insulin ([facility])*; B12 deficiency Allergies Active Allergy Reactions Criticality Noted Date Comments Statins Other (Please comment) 07/07/2018 Muscle and Joint problems documented as of this encounter (statuses as of 02/05/2024) Medications Medication Sig Dispensed Refills Start Date End Date Status Multiple Vitamins-Minerals (MULTIVITAMIN ADULT) TABS Take 1 Tab by mouth daily. Active Ferrous Sulfate (IRON) 28 MG TabletIndications: every other day Take 1 Tablet by mouth. Active oxyCODONE (ROXICODONE) 30 MG immediate release tablet Take 1 Tablet by mouth every 6 hours as needed for Pain. Active Cyanocobalamin (B-12) 1000 MCG/ML KIT Inject as directed. 1 Kit 5 05/31/2019 Active Fish Oil 1000 MG Oral Capsule Take 1 Capsule by mouth in the morning. Active Folic Acid 1 MG Oral Tablet Take 1 Tablet by mouth in the morning. Active Calcium Carbonate-Vitamin D 600-200 MG-UNIT Oral Tablet Take 1 Tablet by mouth in the morning. Active Brimonidine Tartrate-Timolol 0.2-0.5 % Ophthalmic Solution Instill 1 Drop into the left eye every morning. Active CPAP every night at bedtime. Active Cyclobenzaprine HCl 10 MG Oral Tablet (Flexeril) Take 1 Tablet by mouth 3 times a day as needed for muscle spasms 30 Tablet 09/11/2023 Active Rivaroxaban 10 MG Oral Tablet (Xarelto) Take 1 Tablet by mouth daily. 30 Tablet 10 07/23/2023 Active Pantoprazole Sodium 40 MG Oral Tablet Delayed Release (Protonix) Take 1 Tablet by mouth in the morning. 30 Tablet 4 08/20/2023 Active Latanoprost 0.005 % Ophthalmic Solution (Xalatan) Instill 1 drop into both eyes every night at bedtime 10 mL 3 09/22/2023 Active Metoprolol Succinate ER 25 MG Oral Tablet Extended Release 24 Hour (toPROL XL) Take 1 tablet by mouth daily 90 Tablet 5 09/22/2023 Active metFORMIN HCl 1000 MG Oral Tablet (Glucophage) Take 1 tablet by mouth 2 times a day 180 Tablet 1 10/07/2023 Active Zaleplon 10 MG Oral Capsule Take 1 capsule by mouth at bedtime Max Daily Amount: 10 mg 90 Capsule 3 10/07/2023 Active Diclofenac Sodium 1 % External Gel (Voltaren) APPLY 2 GRAMS FOUR TIMES DAILY FOR JOINT PAIN 800 g 11/05/2023 Active Empagliflozin 25 MG Oral Tablet (Jardiance) Take 1 Tablet by mouth daily. 30 Tablet 6 11/10/2023 Active Brinzolamide 1 % Ophthalmic Suspension (Azopt) Instill 1 drop into left eye every twelve hours 15 mL 4 01/21/2024 Active Timolol Maleate 0.5 % Ophthalmic Solution (Timoptic) Instill 1 drop into both eyes every twelve hours 20 mL 5 01/21/2024 Active Monoject Magellan Syringe 25G X 1" 3 ML (Syringe/Needle (Disp)) as directed 3 Each 3 01/25/2024 Active Cyanocobalamin 1000 MCG/ML Injection Solution (Cyanocobalamin) Inject 1 mL into the skin monthly Monthly 3 mL 3 01/25/2024 Active Ciclopirox Olamine 0.77 % External Cream apply topical to affected area twice daily 90 g 1 01/25/2024 Active Gabapentin 400 MG Oral Capsule (Neurontin) Take 1 Capsule by mouth in the morning. 01/20/2024 Active Baclofen 10 MG Oral Tablet (Lioresal) Take 1 Tablet by mouth in the morning and 1 Tablet at noon and 1 Tablet before bedtime. 01/04/2024 Active hydrOXYzine HCl 10 MG Oral Tablet (Atarax) Take 1 Tablet by mouth every 8 hours as needed. 02/03/2023 Active Mounjaro 12.5 MG/0.5ML Subcutaneous Solution Pen-injector (Tirzepatide)Indic ations:Type 2 diabetes mellitus without complication, without long-term current use of insulin (HCC) Inject 12.5 mg under the skin once a week. 9 mL 1 02/05/2024 5 Active rivaroxaban (XARELTO) 10 MG Tablet Take 1 Tablet by mouth in the morning. 4 Discontinued metFORMIN HCl 1000 MG Oral Tablet (Glucophage) Take 1 Tablet by mouth 2 times a day with morning and evening meals. 04/02/2021 4 Discontinued Diclofenac Sodium 1 % External Gel (Voltaren) daily . 02/28/2021 4 Discontinued Ciclopirox Olamine 0.77 % External Cream Apply bid and if not covered go with fungi nail 02/28/2021 4 Discontinued Jardiance 25 MG Oral Tablet Take 1 Tablet by mouth in the morning. 10/29/2021 4 Discontinued Gabapentin 300 MG Oral Capsule (Neurontin) Take 1 Capsule by mouth in the morning. 10/29/2021 4 Discontinued Cyclobenzaprine HCl 10 MG Oral Tablet (Flexeril) Take 1 Tablet by mouth 3 times a day as needed. 09/09/2021 4 Discontinued Latanoprost 0.005 % Ophthalmic Solution 1 Drop at bedtime. 4 Discontinued Timolol Hemihydrate 0.5 % Ophthalmic Solution (Betimol) Instill 1 Drop into both eyes in the morning and 1 Drop before bedtime. 4 Discontinued Pantoprazole Sodium 40 MG Oral Tablet Delayed Release (Protonix) Take 1 Tablet by mouth in the morning. 4 Discontinued Metoprolol Tartrate 25 MG Oral Tablet (Lopressor) Take 1 Tablet by mouth in the morning. 4 Discontinued Mounjaro 10 MG/0.5ML Subcutaneous Solution Pen-injector (Tirzepatide)Indic ations:Type 2 diabetes mellitus without complication, without long-term current use of insulin (HCC) Inject 10 mg under the skin once a week. 6 mL 1 08/04/2023 4 Discontinued oxyCODONE-Acetamin ophen 5-325 MG Oral Tablet (Percocet) Start: 09/08/23 4:29:00 PM EST, 2 tab, PO, q6h, Disp# 20 tab, Refills: 0, Note to Pharmacy: ongoing script, PRN: as needed for pain, Pharmacy: [facility] 09/03/2023 4 Discontinued Hospital, Clinic, or Other Facility Administered Medication Ordered Dose Route Frequency Start Date End Date Status vitamin b-12 (Cyanocobalamin) inj 1,000 mcgIndications:B12 deficiency 1000 mcg IM ONCE 02/05/2024 02/05/2024 Ended documented as of this encounter (statuses as of 02/05/2024) Active Problems Problem Noted Date Diagnosed Date [...] as of this encounter (statuses as of 02/05/2024) Resolved Problems Problem Noted Date Diagnosed Date Resolved Date Acute venous embolism and th rombosis of other specified veins(453.89) 05/07/2001 09/04/2021 documented as of this encounter (statuses as of 02/05/2024) Social History Tobacco Use Types Packs/Day Years [...] money to get more. Never true 10/01/2022 Utilities Answer Date Recorded Do you have trouble paying y our heating, water, or electric bill? (Adult - for ages 18 years and over) Not on file 12/22/2023 Is your family able to pay t he heat, water, or electric bill? (Household - for ages 0-17 years) Not on file 12/22/2023 Does your family have access to good internet? (Household - for ages 0-17 years) Not on file 12/22/2023 Social Connections Answer Date Recorded How often do you feel lonely or isolated from those around you? (Adult - for ages 18 years and over) Not on file 12/22/2023 Sex and Gender Information Value Date Recorded Sex Assigned at Not on file Gender Identity Male 12/12/2022 2:55 PM EDT Sexual Orientation Not on file Job Start Date Occupation Industry Not on file Not on file Not on file documented as of this encounter Last Filed Vital Signs Vital Sign Reading Time Taken Comments Blood Pressure 142/84 02/05/2024 12:04 PM EDT Pulse 78 02/05/2024 12:04 PM EDT Temperature 36.6 C (97.9 F) 02/05/2024 1 2:04 PM EDT Respiratory Rate - - Oxygen Saturation 98% 02/05/2024 12: 04 PM EDT Inhaled Oxygen Concentration - - Weight 144.7 kg (318 lb 14.4 oz) 2023 12:04 PM EDT Height 175.3 cm (5' 9") 02/05/2024 12:0 4 PM EDT Body Mass Index 47.09 02/05/2024 12:04 PM EDT documented in this encounter Progress Notes * Gracia Nicole PA-C - 02/05/2024 12:00 PM EDT [facility] Note Nursing Notes: Jerod Marino LPN 02/05/24 1205 Signed Chief Complaint Patient presents with Weight Management The pt stated he is here to follow up about his Mounjaro Sukhi Beaulieu presents in follow up to the comprehensive weight management clinic. The patient is a 58 year old male Wt Readings from Last 6 Encounters: 02/05/24 (!) 144.7 kg (318 lb 14.4 oz) 08/04/23 (!) 145.6 kg (321 lb) 03/04/23 (!) 145.7 kg (321 lb 3.2 oz) 12/26/22 (!) 141.5 kg (312 lb) 11/25/22 (!) 142.6 kg (314 lb 4.8 oz) 09/15/22 (!) 142.5 kg (314 lb 1.6 oz) Patient is receiving ongoing education regarding dietary and physical modifications for weight loss. - Initial clinic visit 08/16/21. Weight at that time was 330 lbs - Today's weight: 318 lbs - Total weight loss of -12 since initial weight in clinic - Patient's last follow up with GI/Nutrition clinic was on 08/04/23. - The patient's weight has -3 lbs since the last visit 02/05/24 -on Mounjaro 10mg -had L TKA - did well with surgery, now with back pain 08/04/23 -on Mounjaro 10mg -tolerating well -getting knee replacement on 09/02/23 03/04/23 -on ozempic 1mg - not using entire dose - was confused on how to use the medication -unable to get Mounjaro d/t supply issues 11/25/22 -on Trulicity 4.5mg -tolerating well -not interested in surgery at this time - still dealing with dad at the [place] Patient Active Problem List Diagnosis Calculus of both ureters Heterozygous factor V Leiden mutation (HCC) History of DVT (deep vein thrombosis) History of pulmonary embolism Hypercholesteremia Lumbago Sleep apnea in adult Statin intolerance Type 2 diabetes mellitus without complication, without long-term current use of insulin ([facility]) Morbid obesity due to excess calories ([facility]) Pre-operative exam Body mass index (BMI) of 45.0 to 49.9 in adult ([facility]) Review of Systems: Review of Systems Gastrointestinal: Positive for diarrhea. Negative for abdominal pain, constipation, nausea and vomiting. Musculoskeletal: Positive for arthralgias and back pain. All other systems reviewed and are negative. Current Medications: Current Outpatient Medications Medication Sig Dispense Refill Multiple Vitamins-Minerals (MULTIVITAMIN ADULT) TABS Take 1 Tab by mouth daily. Ferrous Sulfate (IRON) 28 MG Tablet Take 1 Tablet by mouth. oxyCODONE (ROXICODONE) 30 MG immediate release tablet Take 1 Tablet by mouth every 6 hours as needed for Pain. Cyanocobalamin (B-12) 1000 MCG/ML KIT Inject as directed. 1 Kit 5 Fish Oil 1000 MG Oral Capsule Take 1 Capsule by mouth in the morning. Folic Acid 1 MG Oral Tablet Take 1 Tablet by mouth in the morning. Calcium Carbonate-Vitamin D 600-200 MG-UNIT Oral Tablet Take 1 Tablet by mouth in the morning. Brimonidine Tartrate-Timolol 0.2-0.5 % Ophthalmic Solution Instill 1 Drop into the left eye every morning. CPAP every night at bedtime. Mounjaro 10 MG/0.5ML Subcutaneous Solution Pen-injector (Tirzepatide) Inject 10 mg under the skin once a week. 6 mL 1 Cyclobenzaprine HCl 10 MG Oral Tablet (Flexeril) Take 1 Tablet by mouth 3 times a day as needed formuscle spasms 30 Tablet 0 Rivaroxaban 10 MG Oral Tablet (Xarelto) Take 1 Tablet by mouth daily. 30 Tablet 10 Pantoprazole Sodium 40 MG Oral Tablet Delayed Release (Protonix) Take 1 Tablet by mouth in the morning. 30 Tablet 4 Latanoprost 0.005 % Ophthalmic Solution (Xalatan) Instill 1 drop into both eyes every night at bedtime 10 mL 3 Metoprolol Succinate ER 25 MG Oral Tablet Extended Release 24 Hour (toPROL XL) Take 1 tablet by mouth daily 90 Tablet 5 metFORMIN HCl 1000 MG Oral Tablet (Glucophage) Take 1 tablet by mouth 2 times a day 180 Tablet 1 Zaleplon 10 MG Oral Capsule Take 1 capsule by mouth at bedtime Max Daily Amount: 10 mg 90 Capsule 3 Diclofenac Sodium 1 % External Gel (Voltaren) APPLY 2 GRAMS FOUR TIMES DAILY FOR JOINT PAIN 800 g 0 Empagliflozin 25 MG Oral Tablet (Jardiance) Take 1 Tablet by mouth daily. 30 Tablet 6 Brinzolamide 1 % Ophthalmic Suspension (Azopt) Instill 1 drop into left eye every twelve hours 15 mL 4 Timolol Maleate 0.5 % Ophthalmic Solution (Timoptic) Instill 1 drop into both eyes every twelve hours 20 mL 5 Monoject Magellan Syringe 25G X 1" 3 ML (Syringe/Needle (Disp)) as directed 3 Each 3 Cyanocobalamin 1000 MCG/ML Injection Solution (Cyanocobalamin) Inject 1 mL into the skin monthly Monthly 3 mL 3 Ciclopirox Olamine 0.77 % External Cream apply topical to affected area twice daily 90 g 1 Gabapentin 400 MG Oral Capsule (Neurontin) Take 1 Capsule by mouth in the morning. Baclofen 10 MG Oral Tablet (Lioresal) Take 1 Tablet by mouth in the morning and 1 Tablet at noon and 1 Tablet before bedtime. hydrOXYzine HCl 10 MG Oral Tablet (Atarax) Take 1 Tablet by mouth every 8 hours as needed. No current facility-administered medications for this visit. Water intake: yes Prescribed diet: [id number] Calorie Controlled Current diet: Breakfast-- sausage sandwich - toast, sausage, cheese Snack-- skips Lunch-- skips Snack-- skips Dinner-- hamburger helper OR stuffed shells Snack-- cheese its Drinks-- water, watered down lemonade Meals Away from Home-- 1x per week Type of exercise: ADL Weight loss Pharmacotherapy: yes Mounjaro 10mg BP 142/84 | Pulse 78 | Temp 36.6 C (97.9 F) | Ht 1.753 m (5' 9") | Wt (!) 144.7 kg (318 lb 14.4oz) | SpO2 98% | BMI 47.09 kg/m | BSA 2.65 m PHYSICAL EXAMINATION: General: Patient awake alert and oriented. Patient is well appearing and in no acute distress. Skin: No rashes. HEENT: Head is atraumatic, normocephalic. EOMs intact Abdomen: Obese Neuro: No focal deficits Psych: Appropriate mood and affect. Assessment and Plan: Abnormal weight gain / Body mass index is 47.09 kg/m. / Morbid obesity : - Would like to proceed with medical management - Barriers are consistency. - Motivators are feeling better overall, avoiding/reducing co-morbid conditions. - The patient was encouraged to to avoid all fruit juices and regular sodas, consume at least 64 ounces of water per day, keep food logs and get weighed on a weekly basis. They were encouraged to increase physical activity as prescribed. - Handouts regarding nutrition and physical activity were provided, as appropriate. Sukhi was seen today for weight management. Diagnoses and all orders for this visit: Morbid obesity due to excess calories (HCC) -increase Mounjaro to 12.5mg - can D/C metformin (diarrhea) -add protein shake around the time of surgery -continue with protein and increase fruit and veggies Abnormal weight gain Type 2 diabetes mellitus without complication, without long-term current use of insulin (HCC) (Primary) - Mounjaro 12.5 MG/0.5ML Subcutaneous Solution Pen-injector (Tirzepatide); Inject 12.5 mg under theskin once a week. B12 deficiency - vitamin b-12 (Cyanocobalamin) inj 1,000 mcg -injection today -home kit ordered by PCP Heterozygous factor V Leiden mutation (HCC) -Had been on lovenox x 10 years; currently on xarelto History of DVT (deep vein thrombosis) As above History of pulmonary embolism As above Hypertriglyceridemia Statin intolerant Stable. Will improve with weight loss. Calculus of both ureters -Has h/o kidney stones- seen by nephrology -recommended to increase fluids to at least 2L daily, consider coming off Vit C (on for factor V) as this can increase risk for kidney stones. On jardiance with is protective against nephrolithiasis -Reports h/o multiple stones and he believes they are calcium oxalate VIRY on CPAP Compliant with CPAP - do not advise stopping CPAP on own--resolution of VIRY typically requires significant wt loss; recommend following up with sleep med should CPAP become uncomfortable as settings & mask may need to be adjusted Statin intolerance The patient agreed to try the plan as discussed and return in 6 months. They were encouraged to call or send a patient portal message in the meantime with any questions or concerns prior to their next clinic visit. I spent a total of 20 minutes on the date of service in preparation, delivery, and documentation ofthe care provided to Sukhi Beaulieu excluding any time spent in the performance of separately billed services. This included but was no limited to providing counseling about the benefits of weight loss, about their nutritional status, detailed explanations about calorie count, types of nutrients to choose, and composition of the meals. Motivational interview provided in order to prepare the patient to achieve future goals. Gracia Nicole PA-C documented in this encounter Nursing Notes * Jerod Marino LPN - 02/05/2024 12:04 PM EDT Chief Complaint Patient presents with Weight Management The pt stated he is here to follow up about his Mounjaro documented in this encounter Plan of Treatment Health Maintenance Due Date Last Done Comments [...] (2 of 2 - PCV) 06/06/2017 06/06/2016 COVID-19 Vaccine (1 - 2022- season) 2023 Albumin/Creatinine Ratio 05/08/2023 05/08/2022 Influenza Vaccine (FLU shot) (#1) 2024 03/29/2020, 06/09/2019, 07/20/2018, Additional history exists HbA1c 07/24/2024 01/22/2024, 03/2 07/2023, 08/17/2023, Additional history exists Diabetic Eye Exam 12/14/2024 12/15/2023, , 01/20/2023 GFR 01/21/2025 01/22/2024, 09/04, 08/17/2023, Additional history exists Lipid Panel 09/23/2028 09/24/2023, 05/07, 02/26/2023, Additional history exists Colonoscopy 09/27/2030 09/27/2020, 09/04, 12/29/2019, Additional history exists Colorectal Cancer Screening 09/27/2030 HPV (Gardasil) Vaccine Aged Out No lo nger eligible based on patient's age to complete this topic Hepatitis B Vaccine Aged Out No longe r eligible based on patient's age to complete this topic MENINGOCOCCAL (MENACTRA/MENVEO) Aged Out No longer eligible based on patient's age to complete this topic documented as of this encounter Medical Devices Not on filedocumented as of this encounter Visit Diagnoses Diagnosis Type 2 diabetes mellitus without complication, without long-term current use of insulin (HCC)- Primary B12 deficiency Other B-complex deficiencies documented in this encounter Administered Medications Inactive Administered Medications - up to 3 most recent administrations Medication Order MAR Action Action Date Dose Rate Site vitamin b-12 (Cyanocobalamin) inj 1,000 mcg 1,000 mcg, Intramuscular, ONCE, On Thu02/05/24 at 1300, For 1 dose Given 02/05/2024 12:31 PM EDT 1,000 mcg Deltoid Left Upper documented in this encounter Advance Directives * Full Code (Latest Code Status on File) Date Activated Date Inactivated Comments 11/03/2022 2:27 PM 11/03/2022 9:37 PM This order ref lects the patients wishes and were consensually agreed upon. Question Answer Comments Discussion of Advance Direct lori occurred with: Not Discussed due to patient's condition * Full Code Date Activated Date Inactivated Comments 11/03/2022 11:41 AM 11/03/2022 2:27 PM This order re flects the patients wishes and were consensually agreed upon. Question Answer Comments Discussion of Advance Direct lori occurred with: Not Discussed due to patient's condition Care Teams [employer] Sales Beauty Advisor Relationship Specialty Start Date End Date William Fernandez DO [address] [place] [address] PCP - General Family Medicine 05/15/22 documented as of this encounter
--- OUTSIDE RECORDS SUMMARY | 2024-06-26 11:48 | External Medical Summary ---
Author Name Unknown Address Unknown Organization [facility] - [address] [facility] [address] Laboratory Report Ordering Provider Test Date Status JAC FABIAN 05/27/2024 09:08:00 Final Normal: <30 mg/g creatinine< br/>High: 30-300 mg/g creatinine
Very High: >300 mg/g creatinine
Nephrotic: >2200 mg/g creatinine Observation Date Value Abnormality Reference (Units ) Status Albumin, Urine 05/27/2024 09:08:00 2.50 (mg/d L) Final This testing was performed a s part of a [facility] [employer] fulfillment initiative Creatinine, Urine 05/27/2024 09:08:00 53 (m g/dL) Final Albumin/Creatinine [Mass Ratio] in Urine 05/27/2024 09:08:00 47 Above high normal <30 (mg /g Creat) Final Performing Location [facility] - [address] [facility] [address]
--- OUTSIDE RECORDS SUMMARY | 2024-06-26 11:48 | External Medical Summary | Continuity of Care Document ---
Author Name Unknown Organization [place] [id number] Address [address] [place] [phone] Care Team Providers Care Progressive Care Manager Name Role Phone William Fernandez Primary Care Physician [phone] [id number] Date[facility]s): 02/01/24 - 02/01/24 [facility] 0 [place] [id number] [facility] Medicine [address] [address] Encounter Diagnosis Presence of left artificial knee joint(Discharge Diagnosis) - 02/01/24 Discharge Disposition: Home or Self Care Attending Physician: MD Luis Eduardo, Geovany Briggs Allergies, Adverse Reactions, Alerts Substance Criticality Severity Reaction Reaction Severity Status HMG-CoA reductase inhibitors Unable to assess criticality Severe Muscle pain General weakness Active Statins (HMG-CoA reductase inhibitors) muscle weakness Active Medications amoxicillin 500 mg oral capsule Start: 11/02/23 10:47:00 AM EDT, 4 cap, PO, As indicated, Disp# 12 cap, Refills: 3, one hour before dental and other procedures as directed, Pharmacy: [facility] #[id number] Start Date: 11/02/23 Status: Ordered baclofen 10 mg oral tablet Start: 01/04/24 11:50:00 AM EDT, 1 tab, PO, tid, Disp# 90 tab, Refills: 0, Pharmacy: [facility] #[id number] Start Date: 01/04/24 Stop Date: 02/03/24 Status: Ordered brimonidine-timolol 0.2%-0.5% ophthalmic solution Start: 08/17/23 8:30:00 AM EST Start Date: 08/17/23 Status: Ordered calcium (as carbonate)-vitamin D3 600 mg-12.5 mcg (500 intl units) oral capsule Start: 08/17/23 8:31:00 AM EST Start Date: 08/17/23 Status: Ordered Centrum Men's oral tablet Start: 08/17/23 8:31:00 AM EST Start Date: 08/17/23 Status: Ordered ciclopirox 0.77% topical cream Start: 08/17/23 8:32:00 AM EST, 1 appl, topical, bid Start Date: 08/17/23 Status: Ordered colestipol 1 g oral tablet Start: 08/17/23 8:32:00 AM EST, 1 tab, PO, bid Start Date: 08/17/23 Status: Ordered diclofenac sodium 1% topical cream Start: 08/17/23 8:33:00 AM EST Start Date: 08/17/23 Status: Ordered ferrous sulfate Start: 08/17/23 8:33:00 AM EST, 27mg Start Date: 08/17/23 Status: Ordered Fish Oil 500 mg oral capsule Start: 04/27/23 9:48:00 AM EDT Start Date: 04/27/23 Status: Ordered Flexeril Start: 08/17/23 8:32:00 AM EST, 10 mg = Start Date: 08/17/23 Status: Ordered folic acid 1 mg oral tablet Start: 08/17/23 8:34:00 AM EST, 1 tab, PO, Daily Start Date: 08/17/23 Status: Ordered hydrOXYzine Start: 08/17/23 8:34:00 AM EST, 10 mg = Start Date: 08/17/23 Status: Ordered ibuprofen Start: 08/17/23 8:35:00 AM EST, 600 mg = Start Date: 08/17/23 Status: Ordered Jardiance 25 mg oral tablet Start: 04/27/23 9:47:00 AM EDT, 1 tab, PO, Daily, Disp# 30 tab Start Date: 04/27/23 Status: Ordered latanoprost 0.005% ophthalmic solution Start: 04/27/23 9:48:00 AM EDT, 1 drop, both eyes, qhs Start Date: 04/27/23 Status: Ordered metFORMIN 1000 mg oral tablet Start: 04/27/23 9:46:00 AM EDT, 1 tab, PO, bid Start Date: 04/27/23 Status: Ordered Metoprolol Succinate ER 25 mg oral tablet, extended release Start: 04/27/23 9:48:00 AM EDT, 1 tab, PO, Daily Start Date: 04/27/23 Status: Ordered Mounjaro Start: 06/03/23 9:14:00 AM EST Start Date: 06/03/23 Status: Ordered Neurontin 400 mg oral capsule Start: 01/20/24 3:39:00 PM EDT, 1 cap, PO, tid, Disp# 90 cap, Refills: 2, Pharmacy: [facility] #[id number] Start Date: 01/20/24 Stop Date: 04/19/24 Status: Ordered oxyCODONE 30 mg oral tablet Take 1 tablet by mouth 2 times a day For ongoing therapy Start Date: 04/27/23 Status: Ordered Ozempic Start: 08/17/23 8:36:00 AM EST Start Date: 08/17/23 Status: Ordered pantoprazole 40 mg oral delayed release tablet Take ONE tablet by MOUTH every morning Start Date: 04/27/23 Status: Ordered Percocet 5 mg-325 mg oral tablet Start: 09/08/23 4:29:00 PM EST, 2 tab, PO, q6h, Disp# 20 tab, Refills: 0, Note to Pharmacy: ongoing script, PRN: as needed for pain, Pharmacy: [facility] Start Date: 09/08/23 Status: Ordered ramelteon 8 mg oral tablet Start: 08/17/23 8:37:00 AM EST Start Date: 08/17/23 Status: Ordered Sonata 5 mg oral capsule Start: 08/17/23 8:37:00 AM EST, 1 cap, PO, qhs, PRN: as needed for sleep Start Date: 08/17/23 Status: Ordered Vitamin B12 Start: 08/17/23 8:32:00 AM EST, 1,000 mcg = Start Date: 08/17/23 Status: Ordered Xarelto 10 mg oral tablet Start: 04/27/23 9:47:00 AM EDT Start Date: 04/27/23 Status: Ordered Mental Status 02/01/24 Barriers to Learning one year None evide nt Mandatory Health Literacy Documentation Yes Health Literacy Communication Barriers N ever Primary Language Hebrew Problem List Condition Confirmation Course Effective Dates Status H ealth Status Informant Lumbar facet arthropathy Confirmed Active S/P total knee arthroplasty Confirmed Active Right lumbar radiculopathy Confirmed Active Spondylolisthesis, lumbar region Confirmed Active Left knee DJD Confirmed Active Knee joint pain Confirmed Active Bilateral chronic knee pain Confirmed Active Diagnosis Diagnosis Type Effective Dates Health Status Clinical Service Informant Presence of left artificial knee joint Discharge Diagnosis 02/01/24 Vital Signs Most recent to oldest [Reference Range]: 1 Height 177 cm (02/01/24 1:07 PM) Patient Weight 144.4 kg (02/01/24 1:07 PM) Body Mass Index 46.09 kg/m2 (02/01/24 1:07 PM) Social History Social History Type Response Smoking Status Never smoked cigaret patrick Sex Male Sex Representation Male (finding) Ortho Outpt Note * Consuelo Raza: PERFORM, MODIFY Event Display: Ortho Outpt Note Authored Date: [id number] Name:BRITTANY SELLERS Patient Number:[id number] :[id number] Date of Service:02/01/2024 CHIEF COMPLAINT: Follow-up s/p left TKA; DOS: 09/02/2023 H[id number] noted procedure. Patient reports he is doing well regard to his leftknee. He is having the most issues with his right knee andisconsidering surgery for his right knee but ishesitant due to a flare in his back issues following surgery. He does have limited ROM of his right knee secondary to to pain and stiffness. PHYSICAL EXAM: Focus on the left lower extremity: Neurovascular is baseline. No femoral or sciatic nerve deficits Left knee ROM: 0-120 Right knee ROM: 0- 90 No intraarticular knee swelling IMPRESSION: 1) 5 months s/p left TKA 2) Right knee OA PLAN: Advised on antibiotic prophylaxis prior to dental appointments. Continue activities as tolerated Follow-up in6 months with x-rays ATTESTATION: Consuelo Glez, scribing for and in the presence of, Geovany Hoff, on this date,02/01/2024 13:01:18. Electronic Signature on File Electronically Reviewed/Signed by: Consuelo Raza Author Signature Dt/Tm:02/01/2024 01:36 PM Electronically Reviewed/Signed by: Geovany Hoff MD Cosigner Signature Dt/Tm: 02/01/2024 03:20 PM Instruction Librarian for Clinical Affairs, [facility] Professor in Orthopaedics Decorator Street And Building, [facility] Medicine Patient Care team information Care Team Personnel Name: DO Fernandez Andy J Position: Referring Member Role: Primary Care Provider Address: [address] [place] [phone] [place]
--- OUTSIDE RECORDS SUMMARY | 2024-06-26 11:48 | External Medical Summary | Summary of Care ---
Author Name Unknown Organization [facility] Address [address] [place] [address] Phone [phone] Care Team Providers Care Networker Name Role Phone Dianaalissalyly William Briggs DO Primary Care Provider Reason for Visit * Reason Onset Date Comments Appointment 02/05/2024 Encounter Details Date Type Department Care Team (Late st Contact Info) Description 02/05/2024 Telephone Nutrition & Weight Management, [facility] [address] [place] [address] Gracia Nicole PA-C [address] [place] [id number] Appointment Allergies Active Allergy Reactions Criticality Noted Date Comments Statins Other (Please comment) 07/07/2018 Muscle and Joint problems documented as of this encounter (statuses as of 02/05/2024) Medications Medication Sig Dispensed Refills Start Date End Date Status Multiple Vitamins-Minerals (MULTIVITAMIN ADULT) TABS Take 1 Tab by mouth daily. Active Ferrous Sulfate (IRON) 28 MG TabletIndications:ev kelvin other day Take 1 Tablet by mouth. [...] both eyes every twelve hours 20 mL 01/21/2024 Active Monoject Magellan Syringe 25G X [...] Active Mounjaro 12.5 MG/0.5ML Subcutaneous Solution Pen-injector (Tirzepatide)Indicat ions:Type 2 diabetes mellitus without complication, without long-term current use of insulin (HCC) Inject 12.5 mg under the skin once a week. 9 mL 1 02/05/2024 02/04/2025 Active documented as of this encounter (statuses [...] encounter Miscellaneous Notes * Telephone Encounter - Jaquelin Durán OSA - 02/05/2024 12:38 PM EDT Pt needs an appointment to Return in about 6 months (around 08/07/2024). With Dr. Nicole documented in this encounter Plan of Treatment [...] 2 - PCV) 06/06/2017 06/06/2016 COVID-19 Vaccine ( season) 2023 Albumin/Creatinine Ratio 05/08/2023 05/08/2022 Influenza Vaccine (FLU shot) (#1) 2024 03/29/2020, 06/09/2019, 07/20/2018, Additional history exists HbA1c 07/24/2024 01/22/2024, 09/04, 08/17/2023, Additional history exists Diabetic Eye Exam [...] filedocumented as of this encounter Advance Directives * Full Code [...] Discussed due to patient's condition Care Teams Networker Relationship Specialty Start Date End Date William Fernandez DO [address] [facility] [place] [id number] PCP - General Family Medicine 05/15/22 documented as of this encounter
--- OUTSIDE RECORDS SUMMARY | 2024-06-26 11:48 | External Medical Summary | Continuity of Care Document ---
Author Name Unknown Organization [place] [address] Address [address] [place] [phone] Care Team Providers Care Other Spatial Scientist Name Role Phone JimAbady Chester Primary Care Physician [phone] [id number] Date(s): 12/28/23 - 12/28/23 [facility] [address] [place] [id number] [facility] Medicine [address] [place] [id number] Encounter Diagnosis Right lumbar radiculopathy(Discharge Diagnosis) - 12/28/23 Spondylolisthesis, lumbar region(Discharge Diagnosis) - 12/28/23 Discharge Disposition: Home or Self Care Attending Physician: MD Cisse Gregory G Allergies, Adverse Reactions, Alerts Substance Criticality Severity Reaction Reaction Severity Status HMG-CoA reductase inhibitors Unable to assess criticality Severe Muscle pain General weakness Active Statins (HMG-CoA reductase inhibitors) muscle weakness Active Assessment and Plan Extracted from: Title:Follow Up Visit Author:MD Cisse Gregory G Date:12/28/23 1.Right lumbar radiculopathy 1 to 80% improvementhe will follow-up with us on appearing or as needed basis 2.Spondylolisthesis, lumbar region Stable we will continue to follow Medications amoxicillin 500 mg oral capsule Start: 11/02/23 10:47:00 AM EDT, 4 cap, PO, As indicated, Disp# 12 cap, Refills: 3, one hour before dental and other procedures as directed, Pharmacy: [facility] #[id number] Start Date: 11/02/23 Status: Ordered baclofen 10 mg oral tablet Start: 10/14/23 10:44:00 AM EDT, 1 tab, PO, tid, Disp# 90 tab, Refills: 2, Start with half a tablet TID and increase to a full tablet TID after 1 week, Pharmacy: [facility] #[id number] Start Date: 10/14/23 Stop Date: 01/12/24 Status: Ordered brimonidine-timolol 0.2%-0.5% ophthalmic solution Start: [...] Ordered Neurontin 400 mg oral capsule Start: 09/30/23 4:04:00 PM EDT, 1 cap, PO, tid, Disp# 90 cap, Refills: 2, Pharmacy: [facility] #[id number] Start Date: 09/30/23 Stop Date: 12/29/23 Status: Ordered oxyCODONE 30 mg oral tablet [...] Start Date: 04/27/23 Status: Ordered Mental Status 12/28/23 Barriers to Learning one year None evide nt Mandatory Health Literacy Documentation Yes Health Literacy Communication Barriers N ever Primary Language Polish Problem List Condition Confirmation Course Effective Dates Status H ealth Status Informant Lumbar facet arthropathy Confirmed Active S/P total knee arthroplasty Confirmed Active Right lumbar radiculopathy Confirmed Active Spondylolisthesis, lumbar region Confirmed Active Left knee DJD Confirmed Active Knee joint pain Confirmed Active Bilateral chronic knee pain Confirmed Active Diagnosis Diagnosis Type Effective Dates Health Status Clinical Service Informant Right lumbar radiculopathy Discharge Diagnosis 12/28/23 Spondylolisthesis, lumbar region Discharge Diagnosis 12/28/23 Social History Social History Type Response Smoking Status Never smoked cigaret patrick Sex Male Ortho Outpt Note * MD Betito, Tim Shepherd: PERFORM Event Display: Ortho Outpt Note Authored Date: Chief Complaint Follow up back pain. Pain 2/2 Primary Care Provider DO Fernandez Andy J Subjective Patient is a 58-year-old male who returns today following a lumbar epidural injection he reports that he is doing much better. He quantifies his pain today as a 2 out of 10 currently 2 out of 10 atthe worst 0-10 at the least which is down from a 10 out of 10. Overall close to an 80% improvement in pain. He notes that he has had improvement both in intensity and frequency. He is now able to do what he wants to do functionally in his garage and not have significant exacerbations of pain.He is pleased with the results. Objective Physical Exam Pleasant male seated comfortably his injection site was visualized was clean dry and intacthe hadnormal lower extremity strengthalthough some mild inhibition with hip flexion on the right side he had intact sensation with negative seated straight leg raisespatient had a wonderful response makenna epidural steroid injection Assessment/Plan 1.Right lumbar radiculopathy 1 to 80% improvementhe will follow-up with us on appearing or as needed basis 2.Spondylolisthesis, lumbar region Stable we will continue to follow Electronic Signature on File CC: William Fernandez DO [address] [place] [phone] * Electronically Reviewed/Signed by: Tim Cisse MD Author Signature Dt/Tm:12/28/2023 01:43 PM Software Designer of Orthopaedics & Rehabilitation and Physical Medicine & Rehabilitation [facility] Patient Care team information Care Team Personnel Name: DO Fernandez Andy J Position: Referring Member Role: Primary Care Provider Address: Address: [address] [place] [phone]
--- OUTSIDE RECORDS SUMMARY | 2024-06-26 11:48 | External Medical Summary | Continuity of Care Document ---
Author Name Unknown Organization [place] [address] Address [address] [place] [phone] Care Team Providers Care Washing And Screening Plant Supervisor Name Role Phone William Fernandez Primary Care Physician [phone] [id number] Date(s): 06/01/24 - 06/01/24 [facility] 0 [place] [id number] [facility] Medicine [address] [place] [address] Encounter Diagnosis Right lumbar radiculopathy(Discharge Diagnosis) - 06/01/24 Spondylolisthesis, lumbar region(Discharge Diagnosis) - 06/01/24 Discharge Disposition: Home or Self Care Attending Physician: MD Cisse Gregory G Allergies, Adverse Reactions, Alerts Substance Criticality Severity Reaction Reaction Severity Status pravastatin Unknown Active HMG-CoA reductase inhibitors Unable to assess criticality Severe Muscle pain General weakness Active Statins (HMG-CoA reductase inhibitors) muscle weakness Active Assessment and Plan Extracted from: Title:Follow Up Visit Author:MD Cisse Gregory G Date:06/01/24 1.Right lumbar radiculopathy Resolved following an epidural injection 2.Spondylolisthesis, lumbar region Likely irritating his left L5 nerve roottreatment options reviewed with the patient we will do an oral prednisone taper as she has had good success with this more than a month agoand if ineffective would then consider a targeted injection into the epidural space at L5-S1 on the left side. Medications amoxicillin 500 mg oral capsule Start: 11/02/23 10:47:00 AM EDT, 4 cap, PO, As indicated, Disp# 12 cap, Refills: 3, one hour before dental and other procedures as directed, Pharmacy: [facility] #[id number] Start Date: 11/02/23 Status: Ordered Azopt 1% ophthalmic suspension Start: 01/20/24 8:00:00 PM EDT, 4 Refill(s), Instill 1 drop into left eye every twelve hours Start Date: 01/20/24 Status: Ordered baclofen 10 mg oral tablet Start: 04/04/24 11:00:00 AM EDT, 1 tab, PO, tid, Disp# 90 tab, Refills: 6, Pharmacy: [facility] #[id number] Start Date: 04/04/24 Status: Ordered brimonidine-timolol 0.2%-0.5% ophthalmic solution Start: 08/17/23 8:30:00 AM EST Start Date: 08/17/23 Status: Ordered calcium (as carbonate)-vitamin D3 600 mg-12.5 mcg (500 intl units) oral capsule Start: 08/17/23 8:31:00 AM EST Start Date: 08/17/23 Status: Ordered Centrum Start: 03/11/24 4:45:00 PM EDT, 0 Refill(s), 1 po daily Start Date: 03/11/24 Status: Ordered ciclopirox 0.77% topical cream Start: 08/17/23 8:32:00 AM EST, 1 appl, topical, bid Start Date: 08/17/23 Status: Ordered colestipol 1 g oral tablet Start: 08/17/23 8:32:00 AM EST, 1 tab, PO, bid Start Date: 08/17/23 Status: Ordered cyanocobalamin 1000 mcg/mL injectable solution Start: 01/24/24 8:00:00 PM EDT, 3 Refill(s), Inject 1 mL into the skin monthly Monthly Start Date: 01/24/24 Status: Ordered diclofenac sodium 1% topical cream Start: 12/16/23 8:00:00 PM EDT, topical, 0 Refill(s), APPLY 2 GRAMS 3 TIMES DAILY or as needed Start Date: 12/16/23 Status: Ordered ferrous sulfate extended release Start: 03/11/24 4:44:00 PM EDT, 27 mg =, PO, 0 Refill(s), Take 27 mg by mouth daily Start Date: 03/11/24 Status: Ordered Flexeril Start: 08/17/23 8:32:00 AM EST, 10 mg = Start Date: 08/17/23 Status: Ordered folic acid 1 mg oral tablet Start: 08/17/23 8:34:00 AM EST, 1 tab, PO, Daily Start Date: 08/17/23 Status: Ordered gabapentin 400 mg oral capsule Start: 05/24/24 8:23:00 AM EST, 1 cap, PO, tid, Disp# 90 cap, Refills: 0, 90 each, 0 Refill(s), take 1 capsule by mouth three times a day, Pharmacy: [facility] #[id number] Start Date: 05/24/24 Status: Ordered hydrOXYzine Start: 08/17/23 8:34:00 AM EST, 10 mg = Start Date: 08/17/23 Status: Ordered Jardiance 25 mg oral tablet Start: 04/27/23 9:47:00 AM EDT, 1 tab, PO, Daily, Disp# 30 tab Start Date: 04/27/23 Status: Ordered latanoprost 0.005% ophthalmic solution Start: 04/27/23 9:48:00 AM EDT, 1 drop, both eyes, qhs Start Date: 04/27/23 Status: Ordered Metoprolol Succinate ER 25 mg oral tablet, extended release Start: 04/27/23 9:48:00 AM EDT, 1 tab, PO, Daily Start Date: 04/27/23 Status: Ordered Mounjaro Start: 06/03/23 9:14:00 AM EST Start Date: 06/03/23 Status: Ordered Mounjaro 12.5 mg/0.5 mL subcutaneous solution Start: 03/11/24 4:45:00 PM EDT, 6 mL, 0 Refill(s) Start Date: 03/11/24 Status: Ordered Neurontin 400 mg oral capsule Start: 01/20/24 3:39:00 PM EDT, 1 cap, PO, tid, Disp# 90 cap, Refills: 2, Pharmacy: [facility] #[id number] Start Date: 01/20/24 Stop Date: 04/19/24 Status: Ordered Strang-3 Fish Oil 1000 mg oral capsule Start: 03/11/24 4:45:00 PM EDT, 1,000 mg =, PO, 0 Refill(s), Take 1,000 mg by mouth daily Start Date: 03/11/24 Status: Ordered oxyCODONE 30 mg oral tablet Take 1 tablet by mouth 2 times a day For ongoing therapy Start Date: 04/27/23 Status: Ordered pantoprazole 40 mg oral delayed release tablet Take ONE tablet by MOUTH every morning Start Date: 04/27/23 Status: Ordered predniSONE 10 mg oral tablet Start: 06/01/24 11:43:00 AM EST, See Instructions, Disp# 21 tab, Refills: 0, 60mg PO x 1 day, then 50mg PO x1 day, then 40mg PO x 1 day, then 30mg PO x1 day, then 20mg PO x 1 day, then 10mg PO x 1 day then stop, Pharmacy: [facility] #[id number] Start Date: 06/01/24 Status: Ordered predniSONE 10 mg oral tablet Start: 05/02/24 2:55:00 PM EDT, See Instructions, Disp# 21 tab, Refills: 0, 60mg PO x 1 day, then 50mg PO x1 day, then 40mg PO x 1 day, then 30mg PO x1 day, then 20mg PO x 1 day, then 10mg PO x 1 daythen stop, Pharmacy: [facility] #[id number] Start Date: 05/02/24 Status: Ordered ramelteon 8 mg oral tablet Start: 08/17/23 8:37:00 AM EST Start Date: 08/17/23 Status: Ordered Sonata 5 mg oral capsule Start: 08/17/23 8:37:00 AM EST, 1 cap, PO, qhs, PRN: as needed for sleep Start Date: 08/17/23 Status: Ordered Timolol Maleate (Eqv-Timoptic) 0.5% ophthalmic solution Start: 01/20/24 8:00:00 PM EDT, 5 Refill(s), Instill 1 drop into both eyes every twelve hours Start Date: 01/20/24 Status: Ordered unlisted medication Start: 03/11/24 4:43:00 PM EDT, 90 each, 0 Refill(s), take 1 tablet by mouth three times a day Start Date: 03/11/24 Status: Ordered Xarelto 10 mg oral tablet Start: 04/27/23 9:47:00 AM EDT Start Date: 04/27/23 Status: Ordered zaleplon 10 mg oral capsule Start: 03/11/24 4:47:00 PM EDT, 90 each, 0 Refill(s) Start Date: 03/11/24 Status: Ordered Mental Status 06/01/24 Barriers to Learning one year None evide nt Mandatory Health Literacy Documentation Yes Health Literacy Communication Barriers N ever Primary Language Azeri Problem List Condition Confirmation Course Effective Dates Status H ealth Status Informant Lumbar facet arthropathy Confirmed Active S/P total knee arthroplasty Confirmed Active Right lumbar radiculopathy Confirmed Active Spondylolisthesis, lumbar region Confirmed Active Left knee DJD Confirmed Active Knee joint pain Confirmed Active Bilateral chronic knee pain Confirmed Active Diagnosis Diagnosis Type Effective Dates Health Status Clinical Service Informant Spondylolisthesis, lumbar region Discharge Diagnosis 06/01/24 Right lumbar radiculopathy Discharge Diagnosis 06/01/24 Social History Social History Type Response Smoking Status Never smoked cigaret patrick Sex Male Sex Representation Male (finding) Ortho Outpt Note * MD Betito, Tim Shepherd: PERFORM Event Display: Ortho Outpt Note Authored Date: Chief Complaint f/u back pain. R side is feeling better. L side is burning and painful. Primary Care Provider DO Jim, William Briggs Subjective Patient is a 58-year-old male who did fantastic with a rightL2-3 epidural injection he reports hehas had 100% relief of pain following the epidural he is very pleased with that. Howeverhe reports he has problems down the left leg he is describing a classic left L5 radiculopathythat is burning from the buttocks into the leghe is uncertain what he might of exacerbated as he quantifies the pain today as a 5 out of 10 currently 10 out of 10 at worst 5 out of 10 at the least. His right lower extremity pain isdescribed as a 0 out of 10 currently 0-10 at the worst 0-10 at the least. Objective Physical Exam Pleasant male seated comfortablyhe has decreased subjective sensation in the left L5 dermatomal distribution other sensations intact no focal weaknesspositive straight leg raise left lower extremity Assessment/Plan 1.Right lumbar radiculopathy Resolved following an epidural injection 2.Spondylolisthesis, lumbar region Likely irritating his left L5 nerve roottreatment options reviewed with the patient we will do anoral prednisone taper as she has had good success with this more than a month agoand if ineffective would then consider a targeted injection into the epidural space at L5-S1 on the left side. Electronic Signature on File CC: William Fernandez DO [address] [place] [phone] * Electronically Reviewed/Signed by: Tim Cisse MD Author Signature Dt/Tm:06/01/2024 11:48 AM Compounder of Orthopaedics & Rehabilitation and Physical Medicine & Rehabilitation [employer] Patient Care team information Care Team Personnel Name: DO Fernandez Andy J Position: Referring Member Role: Primary Care Provider Address: [address] [place] [phone]
--- OUTSIDE RECORDS SUMMARY | 2024-06-26 11:48 | External Medical Summary | Continuity of Care Document ---
Author Name Unknown Organization [facility] [id number] Address [address] [place] [address] [phone] Care Team Providers Care Insurance Account Manager Name Role Phone DianaalissalylyWilliam Primary Care Physician [phone] Encounter [facility] [id number] Date(s): 03/15/24 - 03/15/24 [facility] [address] [place] [id number] [address] [place] [id number] Encounter Diagnosis Spondylolisthesis, lumbar region(Discharge Diagnosis) - 03/14/24 Right lumbar radiculopathy(Discharge Diagnosis) - 03/14/24 Discharge Disposition: Home or Self Care Attending Physician: MD Betito, Tim Shepherd Allergies, Adverse Reactions, Alerts Substance Criticality Severity [...] dental and other procedures as directed, Pharmacy: [facility] #[id number] Start Date: 11/02/23 Status: Ordered Azopt 1% ophthalmic suspension Start: 01/20/24 8:00:00 PM EDT, 4 Refill(s), Instill 1 drop into left eye every twelve hours Start Date: 01/20/24 Status: Ordered baclofen 10 mg oral tablet Start: 01/04/24 11:50:00 AM EDT, 1 tab, PO, tid, Disp# 90 tab, Refills: 0, Pharmacy: [facility] #[id number] Start Date: 01/04/24 Stop Date: 02/03/24 Status: [...] Ordered gabapentin 400 mg oral capsule Start: 03/11/24 4:43:00 PM EDT, 90 each, 0 Refill(s), take 1 capsule by mouth three times a day Start Date: 03/11/24 Status: Ordered hydrOXYzine Start: 08/17/23 8:34:00 AM [...] tid, Disp# 90 cap, Refills: 2, [facility]acy: [facility] #[id number] Start Date: 01/20/24 Stop Date: 04/19/24 Status: Ordered Melber-3 Fish Oil 1000 mg oral capsule Start: [...] Start Date: 03/11/24 Status: Ordered Mental Status 03/15/24 Barriers to Learning one year None evide nt Mandatory Health Literacy Documentation Yes Health Literacy Communication Barriers N ever Primary Language [place]amese Problem List Condition Confirmation Course Effective Dates [...] Service Informant Spondylolisthesis, lumbar region Discharge Diagnosis 03/14/24 Right lumbar radiculopathy Discharge Diagnosis 03/14/24 Vital Signs Most recent to oldest [Reference Range]: 1 Heart Rate 70 bpm (03/15/24 9:39 AM) Blood Pressure 152/78mmHg (03/15/24 9:39 AM) Social History Social History Type Response Smoking Status Never smoked cigaret patrick Sex Male Sex Representation Male (finding) Ortho Outpt Note * MD Betito, Tim Shepherd: PERFORM Event Display: Ortho Outpt Note Authored Date: [id number] Name:BRITTANY SELLERS Patient Number:[id number] :1965 Date of Service:03/15/2024 Preoperative diagnosis:Lumbar spondylolisthesiswith a left greater than right L4 radiculopathy Postoperative diagnosis: Same Procedure: Left paramedian L3-4 interlaminar epidural steroid injection under fluoroscopic guidance Indications: Patient is a 58-year-old malewho had a successful epidural injection that addressed right sided leg painin May he presents today for another injection provided with relief downpredominantly of the left leg. Physical examination:Pleasant male who has difficult time ambulating he is without focal weakness but has sensory disturbancesin the right L4 dermatomal distribution Consent: Verbal consent was obtained from the patient. Prior to the procedure a timeout was done for safety to confirm patient's full name and date of injection type location and approach. Procedure: Patient was maintained in a prone position backside was cleansed with orange ChloraPrep, fluoroscope was used to identify the L3-4 interlaminar space. The space was nearly closed on the right sideminimally open on the left decision was made to enter on the left sidewith an attempted directed towards center midline. The overlying skin on the left side was anesthetized with 4 mL of lidocaine 1% with a 25-gauge 1-1/2 inch needle. 22-gauge 4-1/4 inch Tuohy needle was then directed down towards the interlaminar space was advanced under lateral fluoroscopic guidance and loss of resistance was noted at a depth of 10cm. Omnipaque 300 contrast half milliliter was injected and which demonstrated an epidural uptake pattern they then underwent injection after negative aspiration of 40 mg Depo-Medrol and 4 mL of preservative-free sodium chloride. Injection was tolerated. Images from the procedure were saved and downloaded to PACS. Disposition: Patient will be discharged home once discharge criteria have been met Electronic Signature on File CC: William Fernandez, DO [address] [place] [phone] * Electronically Reviewed/Signed by: Tim Cisse MD Author Signature Dt/Tm:03/15/2024 10:12 AM [facility] .Outpt Proc * TIFFANY Padilla, Shweta Sevilla: PERFORM Event Display: .Outpt Proc Authored Date: [id number] OUTPATIENT PROCEDURE Name: BRITTANY SELLERS Patient Number: [id number] : 1965 Date of Service: 03/15/2024 OUTPATIENT PROCEDURE NOTE Is patient no Procedure performedRightLumbar Epidural Steroid Injection [id number] byDr. Tim Cisse MD Resuscitation equipment checkedyes Anticoagulants stoppedyes - Xarelto - last dose on 03/11/24 Patient has a driveryes xray guidance usedyesConscious sedationnoTime out completedyes consent signedyes Allergies checkedyesStatins (HMG-CoA reductase inhibitors); HMG-CoA reductase inhibitors; pravastatin Diabeticno PositionPronePre procedure pain level __4_10 Skin PrepchlorhexadineSterile drapes usedyes Skin Local Anesthetic: Needle ___25__ga __1.5____in Lidocaile __1___%____4_ml Other No Vital Signs Data Available Block Needle _22_GA_4.25_InchesType - Tuoghy needle Procedure medication used Cortical Steroids __40_mg MethylprednisoloneLocal Anesthetic % ml _- NSS 4ml TimeDrug/Event/RemarkBPHRSPO2 Comments 1004 - 0.5ml Omnipaque 1005 - Procedure complete 156/91 70 99% Status:Pain on discharge ___4_10ComplicationsNo Neurologically stableYes DispositionDischarged Home with aftercare instructions given Follow up __3___months Electronic Signature on File Electronically Reviewed/Signed by: Shweta Padilla Author Signature Dt/Tm:03/15/2024 10:10 AM Electronically Reviewed/Signed by: Tim Cisse MD Cosigner Signature Dt/Tm: 03/15/2024 11:42 AM [facility] Patient Care team information Care Team Personnel Name: DO Fernandez Andy J Position: Referring Member Role: Primary Care Provider Address: [address] [place] [phone] [place]
--- NOTE | 2024-06-26 12:48 | Emergency Department Note ---
History of Present Illness General Chief complaint: Hip Pain Stated complaint: SEVERE LT HIP PAIN Time Seen by Provider: 06/26/24 12:11 History of Present Illness Maximum Pain Intensity: 8 This is a 59-year-old male that presents to the emergency department via private vehicle with complaints of "severe left hip pain". The patient notes that over the past week he has been experiencing left hip pain. He points to the left gluteal area that radiates down the left leg. Notes history of back issues and this is somewhat similar. He states that about a week ago he did reach out to his specialist, and was prescribed gabapentin and has been compliant with this medication. The pain continues. Last evening he began with left medial knee discoloration and left dorsal foot discoloration and was concerned therefore prompting arrival here today. The patient states that he has a history of factor V Leiden as well as DVT/PE diagnosed in 2000. He has been on anticoagulation he notes since that time. He states he is now on Xarelto, last of which was taken this morning. He has not missed any doses. No fevers, chills, chest pain or shortness of breath. No nausea or vomiting. No abdominal pain. Patient denies any lower extremity weakness, bowel or bladder incontinence, numbness or tingling in the genital region. Home Medications Medication Instructions Recorded Confirmed Type calcium 600 mg (as 1 cap PO QAM 12/14/18 06/26/24 History carbonate)-vitamin D3 5 mcg (200 unit) capsule (Calcium 600 + D(3)) cyanocobalamin (vitamin B-12) 1,000 mcg IM Q30D 12/14/18 06/26/24 History 1,000 mcg/mL injection kit folic acid 1 mg tablet 1 mg PO QAM 12/14/18 06/26/24 History rivaroxaban 10 mg tablet (Xarelto) 10 mg PO QAM 12/14/18 06/26/24 History latanoprost (PF) 0.005 % eye drops 1 drp ophthalmic (eye) HS 05/27/19 06/26/24 History omega 4-ghs-wrx-fish oil 1,000 mg 1 cap PO QAM 12/20/19 06/26/24 History (120 mg-180 mg) capsule (Fish Oil) ciclopirox 0.77 % topical cream 1 applic topical BID 08/24/23 06/26/24 History (Loprox (as olamine)) cyclobenzaprine 10 mg tablet 10 mg PO TID PRN Muscle Spasm 08/24/23 06/26/24 History diclofenac sodium 1 % topical gel 2 g topical QID PRN Pain 08/24/23 06/26/24 History (Voltaren Arthritis Pain) empagliflozin 25 mg tablet 25 mg PO DAILY 08/24/23 06/26/24 History (Jardiance) gabapentin 300 mg capsule 600 mg PO TID 08/24/23 06/26/24 History hydroxyzine HCl 10 mg tablet 10 mg PO BID PRN Other 08/24/23 06/26/24 History metoprolol succinate 25 mg 25 mg PO DAILY 08/24/23 06/26/24 History tablet,extended release 24 hr fcaxhxlf-do-anmjb 300 mcg-K 60 1 tab PO DAILY 08/24/23 06/26/24 History mcg-lycop 600 mcg-lutein 300 mcg tablet (Centrum Silver Men) oxycodone 30 mg tablet (Roxicodone) 30 mg PO BID PRN Pain 08/24/23 06/26/24 History pantoprazole 40 mg tablet,delayed 40 mg PO DAILY 08/24/23 06/26/24 History release tirzepatide 12.5 mg/0.5 mL 12.5 mg subcut .Q7days 08/24/23 06/26/24 History subcutaneous pen injector (Mounjaro) zaleplon 5 mg capsule 10 mg PO DAILY 08/24/23 06/26/24 History brinzolamide 1 % eye 1 drp ophthalmic (eye) BID 09/02/23 06/26/24 History drops,suspension (Azopt) timolol maleate 0.5 % eye drops 1 drp ophthalmic (eye) BID 06/26/24 06/26/24 History Allergies Allergy/AdvReac Type Severity Reaction Status Date / Time Epqrqbn-PLO-CoV Reductase Allergy Mild Muscle Pain Verified 09/02/23 05:30 Inhibitor [Kkkelqc-Ekb-Dah Reductase Inhibitor] Past Med/Surg History Problem List (Updated 06/26/24 @ 21:25 by Juan Engel PA-C) Left lumbar radiculopathy (Acute) Alcohol use Kidney stones Hx Sleep apnea CPAP DVT (deep venous thrombosis) (Acute) Chronic back pain Factor 5 Leiden mutation, heterozygous Follows with [facility] Hematology/Dr. Ascencion Pablo Diabetes mellitus, type 2 Status post left knee replacement Adenoma Encounter for pre-operative examination Medical History Morbid obesity with BMI of 45.0-49.9, adult Osteoarthritis Spinal stenosis Degenerative disc disease Pulmonary embolism LLE DVT > PE (2000) Deep vein thrombosis LLE DVT > PE (2000) Factor V leiden mutation Glaucoma B/L Insomnia Hyperlipidemia no meds Surgical History History of colonoscopy with polypectomy History of arthroscopy of right knee meniscus repair History of arthroscopy of left knee meniscus repair History of cystoscopy History of lithotripsy Hx of vasectomy History of major abdominal surgery Intussusception repair History of left inguinal hernia repair History of wisdom tooth extraction History of tonsillectomy Family History Father Family history of diabetes mellitus Mother Family history of diabetes mellitus Grandfather (Maternal) Family history of diabetes mellitus Grandfather (Paternal) Family history of diabetes mellitus Family history of esophageal cancer Grandmother (Paternal) Family history of diabetes mellitus Grandmother (Maternal) Family history of diabetes mellitus Other No family history of adverse response to anesthesia Social History Smoking Status: Former smoker Tobacco Type: Cigarettes Second Hand Exposure: No; Do You Dip or Chew Tobacco: No; Hx Alcohol Use: Yes Alcohol type: hard liquor Hx Substance Use: No Preferred Language: Japanese Communication Ability: Effective Support Analyst Required: No Beliefs That Will Affect Care: None Current Living Situation: Significant Other Current Living Situation Comment: lives with fiance and father Feels Safe at Home: Yes Assistive Devices: Raised Toilet Seat, Stair Lift and Walker Review of Systems A total of 10 systems reviewed and were otherwise negative Physical Exam Vital Signs Vital Signs - 24 hr 06/26/24 11:42 06/26/24 14:24 06/26/24 14:24 Temperature 36.2 C L Temperature Source Temporal Artery Scan Pulse Rate 85 74 Pulse Rate [Radial] 75 Pulse Rhythm Regular Pulse Rhythm [Radial] Regular Respiratory Rate 20 18 20 Respiratory Effort / Characteristics Non-Labored Non-Labored Respiratory Depth Normal Normal Respiratory Pattern Regular Blood Pressure 158/89 H Blood Pressure [Right Arm] 164/100 H Blood Pressure Mean 112 Blood Pressure Mean [Right Arm] 121 Blood Pressure Position Sitting Pulse Oximetry 94 97 97 Oxygen Delivery Method Room Air Room Air Room Air Sepsis Recent Fever Within 48 Hours No Sepsis New/Unexplained Change in Mental Status N/A Sepsis Action Taken by Nursing No Action Required 06/26/24 15:59 06/26/24 16:34 Temperature Temperature Source Pulse Rate Pulse Rate [Radial] 77 Pulse Rhythm Pulse Rhythm [Radial] Respiratory Rate 18 Respiratory Effort / Characteristics Non-Labored Spontaneous Respiratory Depth Normal Respiratory Pattern Regular Blood Pressure Blood Pressure [Right Arm] 161/109 H Blood Pressure Mean Blood Pressure Mean [Right Arm] 126 Blood Pressure Position Pulse Oximetry 96 Oxygen Delivery Method Room Air Room Air Sepsis Recent Fever Within 48 Hours Sepsis New/Unexplained Change in Mental Status Sepsis Action Taken by Nursing VITAL SIGNS - Vital signs and nursing notes were reviewed. Stable and afebrile. GENERAL -59-year-old male appearing his stated age who is in no acute distress. Communicates well with provider and answers questions appropriately. SKIN - Without rashes. No meningeal or petechial rash. HEAD - NC/AT. EYES - PERRL with EOMI bilaterally. Sclera anicteric. EARS - No deformities of external structures noted on gross examination bilaterally. NOSE - Midline and without cyanosis. No epistaxis or purulent drainage noted. MOUTH/OROPHARYNX - Without perioral cyanosis. NECK - Neck with FROM. No nuchal rigidity. LUNGS - CTA CARDIAC - RRR ABDOMEN - Abdominal contour normal without pulsations or visible masses. BS normoactive all four quadrants. No tenderness, palpable masses, hepatosplenomegaly, or ascites noted. EXTREMITIES - No clubbing or peripheral cyanosis. Lower extremities appropriately warm and well-perfused. Left dorsalis pedis pulse within normal limits and symmetric to the right. There is a small amount of ecchymosis to the left medial knee and left dorsal foot area. +5/5 strength noted in UE/LE bilaterally. NEUROLOGIC - Cranial nerves II through XII grossly intact. Sensory intact throughout the left lower extremity without deficit. PSYCH -alert, oriented and pleasant on exam. Course Administered Medications Heparin Sodium/Dextrose (Heparin Sodium/Dextrose) 25,000 units in 500 mls @ 36 mls/hr IV .[id number] [facility]; Protocol Stop: 07/26/24 18:29 Last Admin: 06/26/24 20:46 Dose: 1,800 units/hr, 36 mls/hr Documented By: LETICIA Co-signed By: SHERYL Discontinued Medications Gabapentin (Gabapentin 600 Mg Tab) 600 mg PO NOW STA Stop: 06/26/24 18:04 Last Admin: 06/26/24 18:31 Dose: 600 mg Documented By: AMMY Hydromorphone HCl (Hydromorphone Inj 0.5 Mg/0.5 Ml Syr) 0.5 mg IV NOW STA Stop: 06/26/24 14:19 Last Admin: 06/26/24 14:23 Dose: 0.5 mg Documented By: SIL Hydromorphone HCl (Hydromorphone Inj 0.5 Mg/0.5 Ml Syr) 0.5 mg IV NOW STA Stop: 06/26/24 16:30 Last Admin: 06/26/24 16:33 Dose: 0.5 mg Documented By: LUPE Ioversol (Optiray 320 100ml) 93 ml IV ONCE ONE Stop: 06/26/24 14:06 Last Admin: 06/26/24 14:05 Dose: 93 ml Documented By: JACK Lidocaine (Lidocaine 5% 1 Patch) 1 patch TD NOW STA Stop: 06/26/24 16:30 Last Admin: 06/26/24 16:33 Dose: 1 patch Documented By: LUPE Medical Decision Making Laboratory Data 06/26/24 12:59 06/26/24 13:35 Lab Results 06/26/24 06/26/24 06/26/24 Range/Units 12:59 13:00 13:35 WBC 6.49 (4.8-10.8) K/ul RBC 4.72 (4.70-6.10) M/uL Hgb 14.5 (14.0-18.0) g/dl Hct 42.7 (42.0-52.0) % MCV 90.5 (80.0-100.0) fL MCH 30.7 (25.0-34.0) pg MCHC 34.0 (32.0-36.0) g/dL RDW Std Deviation 44.2 (36.4-46.3) fL RDW Coeff of Sade 13.3 (11.5-14.5) % Plt Count 205 (130-400) K/uL MPV 9.4 (9.4-12.4) fL Immature Gran % (Auto) 0.3 % Neut % (Auto) 62.0 % Lymph % (Auto) 27.1 % Bibb % (Auto) 7.1 % Eos % (Auto) 2.9 % Baso % (Auto) 0.6 % Neut # (Auto) 4.02 (1.40-6.50) K/uL Lymph # (Auto) 1.76 (1.20-3.40) K/uL Bibb # (Auto) 0.46 (0.11-0.59) K/uL Eos # (Auto) 0.19 (0.00-0.50) K/uL Baso # (Auto) 0.04 (0.00-0.20) K/uL Immature Gran # (Auto) 0.02 (0.01-0.20) K/uL PT 10.7 (9.0-12.0) Seconds INR 1.0 (0.9-1.1) APTT 22 (21-31) Seconds PTT Ratio 0.8 Sodium TNP 141 Potassium TNP 3.7 Chloride 107 (98-107) mmol/L Carbon Dioxide 25 (21-32) mmol/L Anion Gap TNP BUN 13 (6-23) mg/dl Creatinine 0.95 (0.6-1.4) mg/dl Est Cr Clr Drug Dosing Not Reportable eGFR 91.07 BUN/Creatinine Ratio 13.7 (10-20) Glucose 185 H (70-99(Fasting)) mg/dl Calcium 9.2 (8.6-10.3) mg/dl Total Bilirubin 0.6 (0.2-1.0) mg/dl AST TNP 20 ALT 32 (7-52) U/L Alkaline Phosphatase 50 (34-104) U/L Total Protein 7.7 (6.0-8.3) gm/dl Albumin 4.3 (3.4-5.0) gm/dl Globulin 3.4 (2.5-4.0) gm/dl Albumin/Globulin Ratio 1.3 (0.9-2) Imaging Data Radiologist's Impression: Venous Doppler Study 06/26/24 12:46 EXAM: US Duplex Left Lower Extremity Veins INDICATION: Pain. TECHNIQUE: Real-time duplex ultrasound scan of the left lower extremity veins integrating B-mode two-dimensional vascular structure, Doppler spectral analysis, color flow Doppler imaging and compression. COMPARISON: No relevant prior studies available. FINDINGS: Limitations: The technologist indicates suboptimal assessment due to soft tissue attenuation. Deep veins: There is a small focal eccentric smooth thrombus in the proximal segment. Internal echo with somewhat linear characteristics noted in the distal femoral and popliteal veins. There is irregular soft tissue echo within the mid posterior tibial vein in the cast. Flow is identified. Normal phasicity. The patient could not cooperate with compression. Superficial veins: No thrombus in the visualized great saphenous vein. Soft tissues: No abnormality noted. IMPRESSION: Suboptimal exam per the technologist. Age indeterminant nonocclusive deep venous thromboses in the left proximal and mid left femoral vein and the left popliteal and posterior tibial veins. ACT 112: Negative or not required by law. Electronically signed by Dejah Ruano 06-26-2024 3:55 PM Abdomen/Pelvis CT 06/26/24 13:12 EXAM: CT Abdomen and Pelvis With Intravenous Contrast INDICATION: Left lower back, gluteal and hip pain. TECHNIQUE: Axial computed tomography images of the abdomen and pelvis with intravenous contrast. Sagittal and coronal reformatted images were created and reviewed. This CT exam was performed using one or more of the following dose reduction techniques: automated exposure control, adjustment of the mA and/or kV according to patient size, and/or use of iterative reconstruction technique. CONTRAST: 93ml of Optiray 320 was administered intravenously. COMPARISON: No relevant prior studies available. FINDINGS: Limitations: None. Lung bases: No abnormality noted. Pleural space: No visualized pleural effusion or pneumothorax. Heart: No abnormality noted. Mediastinum: No abnormality noted. ABDOMEN: Liver: No abnormality noted. Gallbladder and bile ducts: No calcified stones or surrounding fluid. Pancreas: Homogeneous enhancement. No mass, inflammation or ductal dilation. Spleen: No significant abnormality noted. Adrenals: Nodular left adrenal thickening likely reflecting adenomatous changes. The right appears normal. No further assessment required. Kidneys and ureters: There are 3 or 4 stones in the left kidney measuring up to 3 mm. There is a 3 mm right kidney stone. Very minimal asymmetric prominence of the left renal pelvis. The ureters are not dilated. No ureteral stone. No perinephric fluid or gas. Simple bilateral renal cysts noted. No follow-up necessary. No stones or hydronephrosis. Stomach and bowel: Formed stool noted in the right colon. Small amounts of prominent fluid in nondilated small bowel loops. There is left colonic diverticulosis. No diverticulitis or obstruction. PELVIS: Appendix: Well seen and appears normal. Bladder: Mildly distended urinary bladder without gas or stone. Reproductive: No abnormalities noted. ABDOMEN and PELVIS: Intraperitoneal space: No free air or free fluid. Bones/joints: Chronic bilateral L5 pars defects with grade 1-2 lumbosacral anterolisthesis. No acute osseous abnormality. Soft tissues: Asymmetric marked thinning or resection of the right rectus muscle. No hernia noted. Multiple surgical clips noted in the left pelvis. Normal symmetrical appearance of the gluteal musculature. No fluid collection, edema or gas. Vasculature: Atherosclerotic calcification of the aorta and branches. No aneurysm. Lymph nodes: No pathologically enlarged lymph nodes. IMPRESSION: 1. Bilateral nonobstructing kidney stones. There is minimal asymmetric prominence of the left renal collecting system which could reflect a recently passed stone. 2. No bladder stones. 3. Diverticulosis. No diverticulitis. 4. 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 No acute osseous abnormality. ACT 112: Negative or not required by law. Electronically signed by Dejah Ruano 06-26-2024 2:[address] 06/26/24 13:12 EXAM: CT Pelvis With Intravenous Contrast INDICATION: Pain. TECHNIQUE: Axial computed tomography images of the pelvis with intravenous contrast. Sagittal and coronal reformatted images were created and reviewed. This CT exam was performed using one or more of the following dose reduction techniques: automated exposure control, adjustment of the mA and/or kV according to patient size, and/or use of iterative reconstruction technique. CONTRAST: 93ml of Optiray 320 was administered intravenously. COMPARISON: No relevant prior studies available. FINDINGS: Bones/joints: Very minimal narrowing of the left acetabular joint noted. There is minimal marginal spurring of the acetabular roof. No fracture, destruction or dislocation. Soft tissues: No significant abnormality noted. Bladder: No filling defects to suggest mass or large stone. No inflammation. IMPRESSION: Very minimal primary osteoarthritis of the left hip. Otherwise negative. ACT 112: Negative or not required by law. Electronically signed by Dejah Ruano 06-26-2024 2:[address] 06/26/24 13:12 EXAM: CT Lumbar Spine With Intravenous Contrast INDICATION: Back pain. TECHNIQUE: Axial computed tomography images of the lumbar spine with intravenous contrast. Sagittal and coronal reformatted images were created and reviewed. This CT exam was performed using one or more of the following dose reduction techniques: automated exposure control, adjustment of the mA and/or kV according to patient size, and/or use of iterative reconstruction technique. CONTRAST: 93 ml of Optiray 320 was administered intravenously. COMPARISON: Plain radiographs 09/27/2023 stable chronic bilateral L5 pars defects with grade 1 L5 anterolisthesis. Stable mild diffuse facet hypertrophy and spondylosis. Prominent uncal spurring L1-L2 stable. FINDINGS: Limitations: None. Vertebrae: Vertebral body heights maintained. No fracture or significant subluxation. Sacrum/coccyx: No significant abnormality noted. No acute change noted. Discs/spinal canal/neural foramina: There is multilevel mild to moderate to space narrowing. Moderate ventral canal and bilateral foraminal stenosis identified at L1-L2. Moderate ventral canal and bilateral foraminal stenosis L3-L4. Soft tissues: No significant abnormality noted. Kidneys and ureters: Bilateral nonobstructing kidney stones. IMPRESSION: 1. Chronic L5 spondylolysis with lumbosacral anterolisthesis. No acute osseous abnormality. 2. Multilevel degenerative changes with canal and foraminal stenosis as above. ACT 112: Negative or not required by law. Electronically signed by Dejah Ruano 06-26-2024 2:40 PM MDM Narrative Patient was seen and evaluated as above in room D09. Review was performed of triage nursing notes and vital signs. Patient presents to us today for assessment of left-sided gluteal discomfort that radiates down the left leg. On my assessment the patient does have discomfort with attempted straight leg raise on the left. There is no gluteal tenderness but there is mild tenderness in the left lateral hip area without evidence of bursitis. No point tenderness over the L-spine. Options of care were discussed with the patient. IV access with established. Labs were drawn. CT scan was performed of the abdomen/pelvis with recon imaging of the hip and L-spine to further assess. Results as above. These were essentially negative for acute process. I reviewed findings and incidentals with the patient. Doppler study left lower extremity obtained. DVT is noted. These are age-indeterminate and there are no previous to compare. I discussed this with the patient's established hematology group from [facility]. At 5 PM I spoke with Dr. Graham. They recommended heparin drip and later can potentially repeat ultrasound and discharge can transition to Lovenox pending follow-up. They also recommend reaching out to our on-call director of individual giving. They did note that the patient does have history of left lower extremity DVT but they do not have any record of which veins therefore as we cannot confirm today's DVTs are chronic, we will treat as if they could be acute with potential treatment failure of the Xarelto. I then spoke to Dr. Aragon. Recommendation was the standard dose of heparin, no bolus followed by transition to Lovenox at discharge and close follow-up with his director of individual giving. Patient will require further evaluation and management inpatient setting in the ongoing left low back pain that certainly may be lumbar radiculopathy with also left lower extremity DVT of indeterminate age. Case discussed with the hospitalist service. Please refer to further documentation regarding his stay. I did add on left lower extremity arterial Doppler study to be thorough for the left lower extremity. In the evaluation and treatment of this patient the following differential diagnoses were retained: Fracture, dislocation, subluxation, contusion, DVT, arterial occlusion, lumbar radiculopathy, cauda equina syndrome, among others Impression & Plan Left lumbar radiculopathy, DVT (deep venous thrombosis) Discharge Plan Visit Data Chief Complaint: Hip Pain Stated Complaint: SEVERE LT HIP PAIN ED Provider: Jefe Gonzalez ED Midlevel Provider: Juan Engel Discharge Problem: Left lumbar radiculopathy, DVT (deep venous thrombosis) Patient Disposition: Home - Self-Care Condition: Good Discharge Instructions Interventions: ED Discharge Assessment Last Done: 06/26/24 19:42
[2024-06-26 13:20] LABS: Basophils # (auto) 0.04 K/uL (0.00-0.20); Basophils % (auto) 0.6 %; Eosinophils # (auto) 0.19 K/uL (0.00-0.50); Eosinophils % (auto) 2.9 %; Hematocrit (blood only) 42.7 % (42.0-52.0); Hemoglobin 14.5 g/dl (14.0-18.0); Immature Granulocytes # (auto) 0.02 K/uL (0.01-0.20); Immature Granulocytes % (auto) 0.3 %; Lymphocytes # (auto) 1.76 K/uL (1.20-3.40); Lymphocytes % (auto) 27.1 %; Mean Corpuscular Hemoglobin 30.7 pg (25.0-34.0); Mean Corpuscular Volume 90.5 fL (80.0-100.0); Mean Platelet Volume 9.4 fL (9.4-12.4); Monocytes # (auto) 0.46 K/uL (0.11-0.59); Monocytes % (auto) 7.1 %; Neutrophils # (auto) 4.02 K/uL (1.40-6.50); Platelet Count 205 K/uL (130-400); RDW Coefficient of Variation 13.3 % (11.5-14.5); RDW Standard Deviation 44.2 fL (36.4-46.3); Red Blood Count 4.72 M/uL (4.70-6.10); White Blood Count 6.49 K/ul (4.8-10.8)
[2024-06-26 13:40] LABS: Alanine Aminotransferase 32 U/L (7-52); Albumin Globulin Ratio 1.3 (0.9-2); Albumin Level 4.3 gm/dl (3.4-5.0); Alkaline Phosphatase 50 U/L (34-104); BUN Creatinine Ratio 13.7 (10-20); Bilirubin,Total 0.6 mg/dl (0.2-1.0); Blood Urea Nitrogen 13 mg/dl (6-23); Calcium 9.2 mg/dl (8.6-10.3); Carbon Dioxide 25 mmol/L (21-32); Chloride 107 mmol/L (98-107); Globulin 3.4 gm/dl (2.5-4.0); Glucose 185 mg/dl (70-99(Fasting)); Total Protein 7.7 gm/dl (6.0-8.3)
[2024-06-26 13:47] LABS: Partial Thromboplastin Ratio 0.8; Partial Thromboplastin Time 22 Seconds (21-31); Prothrombin Time 10.7 Seconds (9.0-12.0)
[2024-06-26 14:05] LABS: Potassium 3.7 mmol/L (3.5-5.1)
[2024-06-26] MEDS: OPTIRAY 320 100ml IV ONE (14:05)
[2024-06-26] MEDS: HYDROmorphone INJ 0.5 MG/0.5 ML SYR IV STA ×2 (14:23→16:33)
--- NOTE | 2024-06-26 14:33 | CT Scan Report ---
EXAM: CT Abdomen and Pelvis With Intravenous Contrast INDICATION: Left lower back, gluteal and hip pain. TECHNIQUE: Axial computed tomography images of the abdomen and pelvis with intravenous contrast. Sagittal and coronal reformatted images were created and reviewed. This CT exam was performed using one or more of the following dose reduction techniques: automated exposure control, adjustment of the mA and/or kV according to patient size, and/or use of iterative reconstruction technique. CONTRAST: 93ml of Optiray 320 was administered intravenously. COMPARISON: No relevant prior studies available. FINDINGS: Limitations: None. Lung bases: No abnormality noted. Pleural space: No visualized pleural effusion or pneumothorax. Heart: No abnormality noted. Mediastinum: No abnormality noted. ABDOMEN: Liver: No abnormality noted. Gallbladder and bile ducts: No calcified stones or surrounding fluid. Pancreas: Homogeneous enhancement. No mass, inflammation or ductal dilation. Spleen: No significant abnormality noted. Adrenals: Nodular left adrenal thickening likely reflecting adenomatous changes. The right appears normal. No further assessment required. Kidneys and ureters: There are 3 or 4 stones in the left kidney measuring up to 3 mm. There is a 3 mm right kidney stone. Very minimal asymmetric prominence of the left renal pelvis. The ureters are not dilated. No ureteral stone. No perinephric fluid or gas. Simple bilateral renal cysts noted. No follow-up necessary. No stones or hydronephrosis. Stomach and bowel: Formed stool noted in the right colon. Small amounts of prominent fluid in nondilated small bowel loops. There is left colonic diverticulosis. No diverticulitis or obstruction. PELVIS: Appendix: Well seen and appears normal. Bladder: Mildly distended urinary bladder without gas or stone. Reproductive: No abnormalities noted. ABDOMEN and PELVIS: Intraperitoneal space: No free air or free fluid. Bones/joints: Chronic bilateral L5 pars defects with grade 1-2 lumbosacral anterolisthesis. No acute osseous abnormality. Soft tissues: Asymmetric marked thinning or resection of the right rectus muscle. No hernia noted. Multiple surgical clips noted in the left pelvis. Normal symmetrical appearance of the gluteal musculature. No fluid collection, edema or gas. Vasculature: Atherosclerotic calcification of the aorta and branches. No aneurysm. Lymph nodes: No pathologically enlarged lymph nodes. IMPRESSION: 1. Bilateral nonobstructing kidney stones. There is minimal asymmetric prominence of the left renal collecting system which could reflect a recently passed stone. 2. No bladder stones. 3. Diverticulosis. No diverticulitis. 4. 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 No acute osseous abnormality. ACT 112: Negative or not required by law. Electronically signed by Dejah Ruano 06-26-2024 2:33 PM
--- NOTE | 2024-06-26 14:37 | CT Scan Report ---
EXAM: CT Pelvis With Intravenous Contrast INDICATION: Pain. TECHNIQUE: Axial computed tomography images of the pelvis with intravenous contrast. Sagittal and coronal reformatted images were created and reviewed. This CT exam was performed using one or more of the following dose reduction techniques: automated exposure control, adjustment of the mA and/or kV according to patient size, and/or use of iterative reconstruction technique. CONTRAST: 93ml of Optiray 320 was administered intravenously. COMPARISON: No relevant prior studies available. FINDINGS: Bones/joints: Very minimal narrowing of the left acetabular joint noted. There is minimal marginal spurring of the acetabular roof. No fracture, destruction or dislocation. Soft tissues: No significant abnormality noted. Bladder: No filling defects to suggest mass or large stone. No inflammation. IMPRESSION: Very minimal primary osteoarthritis of the left hip. Otherwise negative. ACT 112: Negative or not required by law. Electronically signed by Dejah Ruano 06-26-2024 2:36 PM
--- NOTE | 2024-06-26 14:41 | CT Scan Report ---
EXAM: CT Lumbar Spine With Intravenous Contrast INDICATION: Back pain. TECHNIQUE: Axial computed tomography images of the lumbar spine with intravenous contrast. Sagittal and coronal reformatted images were created and reviewed. This CT exam was performed using one or more of the following dose reduction techniques: automated exposure control, adjustment of the mA and/or kV according to patient size, and/or use of iterative reconstruction technique. CONTRAST: 93 ml of Optiray 320 was administered intravenously. COMPARISON: Plain radiographs 09/27/2023 stable chronic bilateral L5 pars defects with grade 1 L5 anterolisthesis. Stable mild diffuse facet hypertrophy and spondylosis. Prominent uncal spurring L1-L2 stable. FINDINGS: Limitations: None. Vertebrae: Vertebral body heights maintained. No fracture or significant subluxation. Sacrum/coccyx: No significant abnormality noted. No acute change noted. Discs/spinal canal/neural foramina: There is multilevel mild to moderate to space narrowing. Moderate ventral canal and bilateral foraminal stenosis identified at L1-L2. Moderate ventral canal and bilateral foraminal stenosis L3-L4. Soft tissues: No significant abnormality noted. Kidneys and ureters: Bilateral nonobstructing kidney stones. IMPRESSION: 1. Chronic L5 spondylolysis with lumbosacral anterolisthesis. No acute osseous abnormality. 2. Multilevel degenerative changes with canal and foraminal stenosis as above. ACT 112: Negative or not required by law. Electronically signed by Dejah Ruano 06-26-2024 2:40 PM
--- NOTE | 2024-06-26 15:56 | Ultrasound Report ---
EXAM: US Duplex Left Lower Extremity Veins INDICATION: Pain. TECHNIQUE: Real-time duplex ultrasound scan of the left lower extremity veins integrating B-mode two-dimensional vascular structure, Doppler spectral analysis, color flow Doppler imaging and compression. COMPARISON: No relevant prior studies available. FINDINGS: Limitations: The technologist indicates suboptimal assessment due to soft tissue attenuation. Deep veins: There is a small focal eccentric smooth thrombus in the proximal segment. Internal echo with somewhat linear characteristics noted in the distal femoral and popliteal veins. There is irregular soft tissue echo within the mid posterior tibial vein in the cast. Flow is identified. Normal phasicity. The patient could not cooperate with compression. Superficial veins: No thrombus in the visualized great saphenous vein. Soft tissues: No abnormality noted. IMPRESSION: Suboptimal exam per the technologist. Age indeterminant nonocclusive deep venous thromboses in the left proximal and mid left femoral vein and the left popliteal and posterior tibial veins. ACT 112: Negative or not required by law. Electronically signed by Dejah Ruano 06-26-2024 3:55 PM
[2024-06-26] MEDS: LIDOCAINE 5% 1 PATCH TD STA (16:33)
--- NOTE | 2024-06-26 17:34 | History & Physical Report ---
Date of Service June 26, 2024 Assessment & Plan (1) DVT (deep venous thrombosis): Plan: history of DVT and PE in 2000, on Xarelto history of factor V left venous Doppler showed age-indeterminate nonocclusive DVTs in left proximal and mid left femoral vein, left popliteal, and posterior tibial veins nonhypoxic, denies dyspnea, VSS patient is compliant on home Xarelto, hold ER provider talked with patient's environmental compliance officer, recommended heparin drip s tandard, no bolus -> transition to Lovenox in AM - has been on Lovenox at home before with no difficulty nonconcerning for PE at this time, if vital signs change or become symptomatic, consider chest CTA (2) Factor 5 Leiden mutation, heterozygous: Plan: see above (3) Chronic back pain: Plan: patient with chronic back pain and acutely worsened back pain x 1 week Suspect worsened due to DVT burden, will likely improve CT AP - bilateral nonobstructing kidney stones, diverticulosis, chronic bilateral L5 spondylolysis with lumbosacral subluxation hip ct - minimal primary OA of left hip Lumbar spine CT - chronic L5 spondylosis, multilevel degenerative changes with canal and foraminal spinal stenosis at L1-L2 and L3-L4 added Lidoderm patch continue gabapentin, cyclobenzaprine, Voltaren gel added Tylenol as needed would likely benefit from outpatient orthopedics referral if pain does not resolve with anticoagulation for DVT (4) Diabetes mellitus, type 2: Plan: Controlled on Mounjaro and empagliflozin at home; held - Most recent A1C 6.3 - SSI with target BSG range 110-140mg/dL, CF 25, carb ratio 10 - T2DM diet - BSG ACHS if eating, q6h if npo (5) Alcohol use: Plan: drinks roughly 3 shots of rum with coke every night times multiple months Last drink 06/25 No signs of withdrawal at this time, likely to remain stable but daily use continue home folate supplement add thiamine supplement b12 with am labs Ativan prn for at risk protocol (6) Sleep apnea: Plan: may use home CPAP Plan Chronic stable diagnoses: insomnia - continue zaleplon HS, added melatonin prn anxiety - continue hydroxyzine prn GERD - continue PPI VTE ppx: Heparin drip Diet: heart healthy, t2dm Dispo: med/tele Admission and Anticipated Discharge Date Admission Date: 06/26/24 History of Present Illness Chief Complaint: hip pain Primary Care Provider: William Fernandez Patient is a 59-year-old male with a past medical history of DVT, factor V, on Xarelto, DM, VIRY. He presents today due to back pain. The patient stated that last Thursday he was cutting wood with the machine he bent down to hot die picker wood and developed low back pain that radiated down the left side. He called his PCP who increased his gabapentin slowly to [id number] times daily which he started today after an upward titration. The gabapentin did not seem to help his pain. He has had to use a cane to ambulate with the back pain. He noticed that his left foot was discolored last night and remained discolored this morning so he came into the ED with his history of DVT. With his previous DVTs he had a very swollen left leg and tenderness, he also developed a PE. He does not have any tenderness or swelling today. He stated that he ambulates often when he works around in his garage, no recent Sedentary changes, long travel, imm obilization. The patient also denies shortness of breath and chest pain. He stated with his previous DVT he was on Lovenox injections at home twice a day, transition to once a day, and then eventually transition to the now Xarelto. He has no difficulty with Lovenox injections at home. The patient does not use nicotine products. The patient stated that he drinks roughly 3 shots of rum with coke every night for the past few months. He took all of his home medications this morning. He uses CPAP at nighttime for VIRY. He wishes to be full code at this time but would not want long-term ventilation or life support. Allergies Allergy/AdvReac Type Severity Reaction Status Date / Time Gwinhfr-JZB-IhS Reductase Allergy Mild Muscle Pain Verified 09/02/23 05:30 Inhibitor [Ohffedr-Bzh-Szi Reductase Inhibitor] Home Medications Medication Instructions Recorded Confirmed Type calcium 600 mg (as 1 cap PO QAM 12/14/18 06/26/24 History carbonate)-vitamin D3 5 mcg (200 unit) capsule (Calcium 600 + D(3)) cyanocobalamin (vitamin B-12) 1,000 mcg IM Q30D 12/14/18 06/26/24 History 1,000 mcg/mL injection kit folic acid 1 mg tablet 1 mg PO QAM 12/14/18 06/26/24 History rivaroxaban 10 mg tablet (Xarelto) 10 mg PO QAM 12/14/18 06/26/24 History latanoprost (PF) 0.005 % eye drops 1 drp ophthalmic (eye) HS 05/27/19 06/26/24 History omega 3-omu-opt-fish oil 1,000 mg 1 cap PO QAM 12/20/19 06/26/24 History (120 mg-180 mg) capsule (Fish Oil) ciclopirox 0.77 % topical cream 1 applic topical BID 08/24/23 06/26/24 History (Loprox (as olamine)) cyclobenzaprine 10 mg tablet 10 mg PO TID PRN Muscle Spasm 08/24/23 06/26/24 History diclofenac sodium 1 % topical gel 2 g topical QID PRN Pain 08/24/23 06/26/24 History (Voltaren Arthritis Pain) empagliflozin 25 mg tablet 25 mg PO DAILY 08/24/23 06/26/24 History (Jardiance) gabapentin 300 mg capsule 600 mg PO TID 08/24/23 06/26/24 History hydroxyzine HCl 10 mg tablet 10 mg PO BID PRN Other 08/24/23 06/26/24 History metoprolol succinate 25 mg 25 mg PO DAILY 08/24/23 06/26/24 History tablet,extended release 24 hr dovragyk-hr-juncc 300 mcg-K 60 1 tab PO DAILY 08/24/23 06/26/24 History mcg-lycop 600 mcg-lutein 300 mcg tablet (Centrum Silver Men) oxycodone 30 mg tablet (Roxicodone) 30 mg PO BID PRN Pain 08/24/23 06/26/24 History pantoprazole 40 mg tablet,delayed 40 mg PO DAILY 08/24/23 06/26/24 History release tirzepatide 12.5 mg/0.5 mL 12.5 mg subcut .Q7days 08/24/23 06/26/24 History subcutaneous pen injector (Mounjaro) zaleplon 5 mg capsule 10 mg PO DAILY 08/24/23 06/26/24 History brinzolamide 1 % eye 1 drp ophthalmic (eye) BID 09/02/23 06/26/24 History drops,suspension (Azopt) timolol maleate 0.5 % eye drops 1 drp ophthalmic (eye) BID 06/26/24 06/26/24 History Past Med/Surg History Problem List (Updated 06/26/24 @ 18:18 by Katie Arora PA-C) Alcohol use Kidney stones Hx Sleep apnea CPAP DVT (deep venous thrombosis) Chronic back pain Factor 5 Leiden mutation, heterozygous Follows with [facility] Hematology/Dr. Ascencion Pablo Diabetes mellitus, type 2 Status post left knee replacement Adenoma Encounter for pre-operative examination Medical History Morbid obesity with BMI of 45.0-49.9, adult Osteoarthritis Spinal stenosis Degenerative disc disease Chronic back pain Kidney stones Hx Diabetes mellitus, type 2 Pulmonary embolism LLE DVT > PE (2000) Deep vein thrombosis LLE DVT > PE (2000) Factor V leiden mutation Factor 5 Leiden mutation, heterozygous Follows with [facility] Hematology/Dr. Ascencion Pablo Glaucoma B/L Insomnia Hyperlipidemia no meds Sleep apnea CPAP Surgical History History of colonoscopy with polypectomy History of arthroscopy of right knee meniscus repair History of arthroscopy of left knee meniscus repair History of cystoscopy History of lithotripsy Hx of vasectomy History of major abdominal surgery Intussusception repair History of left inguinal hernia repair History of wisdom tooth extraction History of tonsillectomy Family History Father Family history of diabetes mellitus Mother Family history of diabetes mellitus Grandfather (Maternal) Family history of diabetes mellitus Grandfather (Paternal) Family history of diabetes mellitus Family history of esophageal cancer Grandmother (Paternal) Family history of diabetes mellitus Grandmother (Maternal) Family history of diabetes mellitus Other No family history of adverse response to anesthesia Social History Smoking Status: Former smoker Tobacco Type: Cigarettes Second Hand Exposure: No; Do You Dip or Chew Tobacco: No; Hx Alcohol Use: Yes Alcohol type: hard liquor Hx Substance Use: No Preferred Language: Tanzanian Communication Ability: Effective Hr Intern Required: No Beliefs That Will Affect Care: None Current Living Situation: Significant Other Current Living Situation Comment: lives with fiance and father Feels Safe at Home: Yes Assistive Devices: Raised Toilet Seat, Stair Lift and Walker Review of Systems Review of Systems: see HPI Physical Exam Physical Exam: The patient is awake, alert and oriented 3, obese, normocephalic and atraumatic, in no acute distress. Non-toxic appearing. HEENT- EOMI, mucous membranes moist. Hearing grossly intact. Heart-normal S1 and S2. No murmurs, rubs or gallops. Lungs-clear bilaterally, no respiratory distress, no accessory muscle use. Abdomen-normal bowel sounds and soft. No ascites noted. Non-tender. Extremities- no clubbing, cyanosis, or edema. Rheumatologic-normal range of motion. Psychiatric-normal affect. Results & Data Results & Data Vital Signs (Past 12 Hours) Vital Signs Temp Pulse Pulse Resp BP BP Pulse Ox 06/26/24 16:34 06/26/24 15:59 77 18 161/109 H 96 06/26/24 14:24 74 20 97 06/26/24 14:24 75 18 164/100 H 97 06/26/24 11:42 36.2 C L 85 20 158/89 H 94 O2 Del Method 06/26/24 16:34 Room Air 06/26/24 15:59 Room Air 06/26/24 14:24 Room Air 06/26/24 14:24 Room Air 06/26/24 11:42 Room Air Laboratory Results Reviewed CBC, CMP, PT/INR Diagnostic Findings reviewed venous Doppler, A/P CT, head CT, lumbar spine CT Medications Administered ED: 1mg Dilaudid, lidocaine patch ECG Additional Comments: NSR Code Status & VTE Plan Code Status full VTE Prophylaxis Plan VTE Prophylaxis will be ordered: Yes Supervising Physician Co-Signing Physician Notes Patient seen and examined, chart reviewed, case discussed with Katie Arora PA-C and I agree with the assessment and plan as above except as otherwise noted Labs and images reviewed 59-year-old male with a history of factor V Leiden on DOAC with suspected worsened nonocclusive left proximal/mid left femoral vein and left popliteal and posterior tibial DVT. Case was reviewed between the ER and patient's hem atologist at [facility], is recommended for overnight heparin standard normal gram no bolus and transition to Lovenox tomorrow. Phelgmasia cerulea dolens is not present. Suspect pain due to extensive DVT burden. CT does not show obstructive renal stones, no evidence of acute lumbar spine disease, no evidence of hip fracture. Agree with above. PG Care Time/CCT Total # of Minutes Spent Total Time Spent with Patient: Total time spent is greater than 50% in coordination of care (as documented) at patient's floor/unit and/or counseling patient: Coding Level of Care Code 54914 INT INP/OBS CARE 3/75MIN Diagnoses DVT (deep venous thrombosis) I82.409 Factor 5 Leiden mutation, heterozygous D68.51 Chronic back pain M54.9; G89.29 Diabetes mellitus, type 2 E11.9 Alcohol use F10.90 Sleep apnea G47.30
[2024-06-26] MEDS: GABAPENTIN 600 MG TAB PO STA (18:31)
[2024-06-26] MEDS ORDERED: GLUCOSE 10 TAB/TUBE PO PRN (20:10)
[2024-06-26] MEDS ORDERED: GLUCAGON FOR INJ 1 MG VIAL SQ PRN (20:10)
[2024-06-26] MEDS ORDERED: DOCUSATE SODIUM 100 MG CAP PO PRN (20:10)
[2024-06-26] MEDS ORDERED: DEXTROSE 50% 50 ML SYRINGE IV PRN (20:10)
[2024-06-26] MEDS ORDERED: LORazepam 1 MG TAB PO PRN (20:10)
[2024-06-26] MEDS ORDERED: DICLOFENAC SOD 1% GEL 100 GM TUBE EXT PRN (20:10)
[2024-06-26] MEDS ORDERED: ACETAMINOPHEN 325 MG TAB PO PRN (20:10)
[2024-06-26] MEDS ORDERED: MELATONIN 3 MG TAB PO PRN (20:10)
[2024-06-26] MEDS ORDERED: hydrOXYzine HCl 10 MG TAB PO PRN (20:10)
[2024-06-26] MEDS ORDERED: CYCLOBENZAPRINE HCL 10 MG TAB PO PRN (20:10)
[2024-06-26] MEDS ORDERED: CARBOHYDRATES FOR HYPOGLYCEMIA PO PRN (20:10)
[2024-06-26] MEDS ORDERED: GLUCOSE 40% GEL 15 GM TUBE PO PRN (20:10)
[2024-06-26] MEDS: HEPARIN SODIUM/DEXTROSE 25,000 UNITS/500 ML BAG IV SCH (20:46)
[2024-06-26] MEDS ORDERED: ZALEPLON 5 MG PO SCH (21:00)
[2024-06-26] MEDS: LATANOPROST 0.005% OP SOLN 2.5 ML BTL OP SCH (22:03)
[2024-06-26] MEDS: BRINZOLAMIDE (AZOPT) OPS 10 ML BTL OPL SCH (22:03)
[2024-06-26] MEDS: TIMOLOL MALEATE 0.5% OP SOLN 5 ML BTL OP SCH (22:04)
[2024-06-26] MEDS: DICLOFENAC SOD 1% GEL 100 GM TUBE EXT SCH (22:05)
[2024-06-26] MEDS: GABAPENTIN 300 MG CAP PO SCH (22:07)
[2024-06-26] MEDS: INSULIN ASPART PER UNIT CHARGE SC SCH (22:09)
[2024-06-26 22:31] VITALS: TEMP 97.9
[2024-06-27] MEDS ORDERED: ENOXAPARIN 150 MG/ML SYR SQ SCH ×2
--- NOTE | 2024-06-27 03:13 | Ultrasound Report ---
EXAM: US arterial duplex LE LT CLINICAL HISTORY: Discoloration of LLE. TECHNIQUE: Ultrasound examination of the left lower extremity arteries was performed in real time and duplex. One or more of the following were performed- spectral analysis, resistive index, waveform analysis, and pulsed Doppler. limited study due to Increased body habitus. COMPARISON: None. FINDINGS: Vessel Flow Pattern Left Peak Velocity Left (cm/sec) Common Femoral Artery (BUDGET COUNSELOR) Triphasic 89.9 Deep Femoral Artery (DPA) Triphasic 63.5 Superficial Femoral Artery (SFA) Triphasic Proximal: 87.6 Mid: 100.7 Distal: 58.7 Popliteal Artery (POP A) Triphasic prox:52.8 distal: 118.0 Posterior Tibial Artery (KAIAKO KURA KAUPAPA MAORI), proximal Triphasic prox:72.5 distal:92.3 Peroneal Artery Triphasic prox:25.0 distal:37.0 Anterior tibial artery( YADIRA) Triphasic prox:43.0 distal:55.9 Dorsalis Pedis Artery (DPA) Triphasic 34.7 Triphasic waveforms are noted throughout the left lower extremity arteries. No mural plaques or hemodynamically significant stenosis is noted in the arteries of both lower extremities. The peak systolic velocities are within normal limit. No evidence of significant stenosis (50%) or hemodynamically significant lesions. Normal triphasic/triphasic waveform pattern observed throughout the evaluated segments. Collateral Circulation: No significant collateral circulation noted indicative of chronic arterial occlusion. IMPRESSION: Normal arterial flow characteristics of left lower extremity with no evidence of significant stenosis or occlusion. Electronically signed by Johnny Razo 06-27-2024 03:13 AM
[2024-06-27 03:48] LABS: ANTI-Xa, UFH(UnfractionatedHep 0.39 IU/ml (0.3-0.7)
[2024-06-27] MEDS: oxyCODONE HCL IR 5 MG TAB (IMMEDIATE RELEASE) PO PRN (04:09)
[2024-06-27] MEDS: Heparin IV Adult Wt-Based Standard *NO* INITIAL Bolus Protocol IV STA (04:11)
[2024-06-27 06:39] LABS: BUN Creatinine Ratio 16.2 (10-20); Calcium 8.8 mg/dl (8.6-10.3); Creatinine Clr Calc Pharmacy 146.3 ml/min; Potassium 3.9 mmol/L (3.5-5.1)
[2024-06-27 07:01] LABS: ANTI-Xa, UFH(UnfractionatedHep 0.35 IU/ml (0.3-0.7)
[2024-06-27 07:23] LABS: Hematocrit (blood only) 39.1 % (42.0-52.0); Hemoglobin 13.2 g/dl (14.0-18.0); Mean Corpuscular Hemoglobin 30.4 pg (25.0-34.0); Mean Corpuscular Hgb Conc 33.8 g/dL (32.0-36.0); Mean Corpuscular Volume 90.1 fL (80.0-100.0); Mean Platelet Volume 9.4 fL (9.4-12.4); Platelet Count 177 K/uL (130-400); RDW Coefficient of Variation 13.4 % (11.5-14.5); RDW Standard Deviation 44.4 fL (36.4-46.3); Red Blood Count 4.34 M/uL (4.70-6.10); White Blood Count 5.68 K/ul (4.8-10.8)
[2024-06-27 07:33] VITALS: RESP 18; O2SAT 94
[2024-06-27 07:35] LABS: Basophils # (auto) 0.04 K/uL (0.00-0.20); Basophils % (auto) 0.7 %; Eosinophils # (auto) 0.21 K/uL (0.00-0.50); Eosinophils % (auto) 3.7 %; Immature Granulocytes # (auto) 0.01 K/uL (0.01-0.20); Immature Granulocytes % (auto) 0.2 %; Lymphocytes # (auto) 1.91 K/uL (1.20-3.40); Lymphocytes % (auto) 33.6 %; Monocytes % (auto) 8.8 %; Neutrophils # (auto) 3.01 K/uL (1.40-6.50); Platelet Estimate Normal (Normal)
[2024-06-27] MEDS: METOPROLOL SUCC 25MG EXT REL TAB PO SCH (08:11)
[2024-06-27] MEDS: FOLIC ACID 1 MG TAB PO SCH (08:11)
[2024-06-27] MEDS: THIAMINE HCL 100 MG TAB PO SCH (08:11)
[2024-06-27] MEDS: CALCIUM 600MG + VIT D 400 IU TAB PO SCH (08:11)
[2024-06-27] MEDS: PANTOprazole 40 MG TAB PO SCH (08:12)
[2024-06-27] MEDS: OMEGA-3 (PURIFIED FISH OIL) 1 GM CAP PO SCH (08:12)
[2024-06-27] MEDS: LIDOCAINE 5% 1 PATCH TD SCH (08:12)
[2024-06-27] MEDS ORDERED: ENOXAPARIN 1 MG/KG SC SCH (08:15)
[2024-06-27] MEDS: ENOXAPARIN 150 MG/ML SYR SQ SCH (09:18)
--- NOTE | 2024-06-27 10:33 | Discharge Summary ---
Discharge Summary Date of Service June 27, 2024 Principal Dx & Hospital Course #1 = Principal Diagnosis (1) DVT (deep venous thrombosis): history of DVT and PE in 2000, on Xarelto. History of factor V Leiden deficiency. Venous Doppler evaluation of the left lower extremity reveals nonocclusive thrombi. These apparently occurred while he was taking Xarelto. He is now on a heparin drip which will be switched to Lovenox subcutaneously every 12 hours which will continue at discharge. Xarelto has been discontinued (2) Factor 5 Leiden mutation, heterozygous: Chronic systemic anticoagulation indicated (3) Chronic back pain: This appears to be due to his underlying lumbar stenosis. He will be discharged on a prednisone tapering dose. He takes oxycodone on a as needed basis at home (4) Diabetes mellitus, type 2: Controlled on Mounjaro and empagliflozin at home. While hospitalized, he is treated with ADA diet, sliding scale coverage (5) Alcohol use: No evidence of withdrawal symptoms. Vitamin replacement. Ativan as needed (6) Sleep apnea: Stable. May use home CPAP Plan Home today, June 27 Admission HPI Per Admitting Provider Patient is a 59-year-old male with a past medical history of DVT, factor V, on Xarelto, DM, VIRY. He presents today due to back pain. The patient stated that last Thursday he was cutting wood with the machine he bent down to fruit picker wood and developed low back pain that radiated down the left side. He called his PCP who increased his gabapentin slowly to [id number] times daily which he started today after an upward titration. The gabapentin did not seem to help his pain. He has had to use a cane to ambulate with the back pain. He noticed that his left foot was discolored last night and remained discolored this morning so he came into the ED with his history of DVT. With his previous DVTs he had a very swollen left leg and tenderness, he also developed a PE. He does not have any tenderness or swelling today. He stated that he ambulates often when he works around in his garage, no recent Sedentary changes, long travel, immobilization. The patient also denies shortness of breath and chest pain. He stated with his previous DVT he was on Lovenox injections at home twice a day, transition to once a day, and then eventually transition to the now Xarelto. He has no difficulty with Lovenox injections at home. The patient does not use nicotine products. The patient stated that he drinks roughly 3 shots of rum with coke every night for the past few months. He took all of his home medications this morning. He uses CPAP at nighttime for VIRY. He wishes to be full code at this time but would not want long-term ventilation or life support. Discharge Exam General-alert and oriented x3, no fever, no chills HEENT-head atraumatic and normocephalic, pupils equal and reactive to light, extraocular muscles intact Neck-no lymphadenopathy or thyromegaly, trachea midline Chest-clear to auscultation. No rales, wheezing or rhonchi Cardiac-regular rate and rhythm, normal S1 and S2 Abdomen-normal bowel sounds, no hepatosplenomegaly Extremities-no cyanosis, clubbing, or edema Neuro-cranial nerves II through XII intact, motor and sensory function within normal limits, strength symmetrical, no focal deficits Psych-normal affect, normal mood Discharge Plan Discharge Items Patient Disposition: Home - Self-Care Reason For Visit: DVT Discharge Diagnosis: Nonocclusive left leg DVT, acute on chronic back pain due to lumbar stenosis Condition on Discharge: Good Activity: Resume your previous activity Non-emergency contact: Primary Care Provider Call non-emergency contact if: your symptoms worsen Follow-up/Referrals: William Fernandez [Primary Care Provider] - Diet: Carb Consistent or DM2 Addtl Attending Provider Instructions: Stop Xarelto. Take Lovenox 140 mg subcutaneously every 12 hours. Take prednisone in a tapering dose fashion as directed. Prescriptions have been sent to your pharmacy Pending Studies at Discharge: No Stand-Alone Forms: [facility], Smoking Cessation Medications and DC Order Prescriptions: New enoxaparin [Lovenox] 150 mg/mL Syringe 140 mg subcut Q12 Qty: 30 0RF prednisone 10 mg tablet See Rx Instructions .ROUTE .COMPLEX Qty: 12 0RF Rx Instructions: 10 mg orally 3 times a day for 2 days, then 10 mg twice a day for 2 days, then 10 mg once a day for 2 days, then stop Continued ciclopirox [Loprox (as olamine)] 0.77 % cream 1 applic topical BID cyclobenzaprine 10 mg tablet 10 mg PO TID PRN (Reason: Muscle Spasm) diclofenac sodium [Voltaren Arthritis Pain] 1 % gel 2 g topical QID PRN (Reason: Pain) Rx Instructions: apply to single elbow, wrist or hand; for hand includes palm/fingers/back of hand Jardiance 25 mg tablet 25 mg PO DAILY gabapentin 300 mg capsule 600 mg PO TID hydroxyzine HCl 10 mg tablet 10 mg PO BID PRN (Reason: Other) metoprolol succinate 25 mg tablet extended release 24 hr 25 mg PO DAILY Centrum Silver Men [phone] mcg tablet 1 tab PO DAILY pantoprazole 40 mg tablet,delayed release (DR/EC) 40 mg PO DAILY Mounjaro 12.5 mg/0.5 mL pen injector 12.5 mg subcut .Q7days zaleplon 5 mg capsule 10 mg PO DAILY folic acid 1 mg Tablet 1 mg PO QAM Calcium 600 + D(3) 600 mg calcium- 200 unit Capsule 1 cap PO QAM Xarelto 10 mg Tablet 10 mg PO QAM cyanocobalamin (vitamin B-12) 1,000 mcg/mL Kit 1,000 mcg IM Q30D Patient Comments: beginning august oxycodone [Roxicodone] 30 mg tablet 30 mg PO BID PRN (Reason: Pain) omega 3-jkz-sjw-fish oil [Fish Oil] 1,000 mg (120 mg-180 mg) Capsule 1 cap PO QAM Hold Instructions: Resume on 10/03/23. latanoprost (PF) 0.005 % Drops 1 drp OPHTHALMIC (EYE) HS brinzolamide [Azopt] 1 % drops,suspension 1 drp ophthalmic (eye) BID Rx Instructions: 1 drop left eye Q12 HR timolol maleate 0.5 % drops 1 drp ophthalmic (eye) BID Discharge Orders: Discharge Order (Routine); Ordered 06/27/24 Ordered By: Ascencion Corado Admission Data Admit Date/Time: 06/26/24 18:11 Attending Provider: Ascencion Corado Admit Provider: Indra Ash Primary Care Provider: William Fernandez Other Providers: Indra Ash Hospital Stay Data Consultations 06/26/24 16:51 ED Decision to Admit Stat Diagnostic Imagining Performed 06/26/24 12:46 US venous doppler LE LT Stat 06/26/24 13:12 CT abd pelvis IV con only Stat CT hip LT w con Stat CT lumbar spine w con Stat 06/27/24 arterial duplex LE LT Stat Pending Results Patient Have Any Pending Studies at Discharge: No Discharge Instructions Given to Patient (Per Discharging Provider) Stop Xarelto. Take Lovenox 140 mg subcutaneously every 12 hours. Take prednisone in a tapering dose fashion as directed. Prescriptions have been sent to your pharmacy Total Time Total Time Spent Total Time Spent (In Minutes): 45 minutes Coding Level of Care Code 21700 INP/OBS DISCH >30 MIN Diagnoses DVT (deep venous thrombosis) I82.409 Factor 5 Leiden mutation, heterozygous D68.51 Chronic back pain M54.9; G89.29 Diabetes mellitus, type 2 E11.9 Alcohol use F10.90 Sleep apnea G47.30
[2024-06-27 10:48] VITALS: BP 135/84; PULSE 77
--- NOTE | 2024-06-27 11:27 | Electrocardiogram Report ---
Test Reason : Blood Pressure : */* mmHG Vent. Rate : 78 BPM Atrial Rate : 78 BPM P-R Int : 166 ms QRS Dur : 124 ms QT Int : 394 ms P-R-T Axes : 20 16 29 degrees QTcB Int : 449 ms Normal sinus rhythm Right bundle branch block Borderline ECG When compared with ECG of 17-Aug-2023 10:06, No significant change was found Confirmed by Issa Abebe ([id number]) on 06/27/2024 11:27:15 AM Referred By: REFERRED SELF Confirmed By: Issa Abebe
[2024-06-27] MEDS ORDERED: Nursing to Pharmacy Communication SCH (12:15)
== END 2024-06-27 12:46 | disposition home or self-care (01) | DRG 300 ==
LOC: ED 11:42 → 2N 18:11 → SUATTDRO 18:11 → 2N 19:42